=== PATIENT | male | born 1960 | race Hispanic/Latino ===

== ENCOUNTER 2017-01-31 08:29 | Inpatient (IN) | payer BC ==
[~2017-01-31 08:29] MED LIST: Calcium Chloride 1000 mg/10 ml Syringe IV ONE
[2017-01-31 08:46] VITALS: BMI 23.1
--- NOTE | 2017-01-31 08:49 | C.PDOC ---
Time Seen by Provider: 01/31/17 08:47 Chief Complaint (Nursing): Altered Mental Status Past Medical History Reviewed: Historical Data, Nursing Documentation, Vital Signs Vital Signs: Last Vital Signs Temp Pulse 26 L 01/31/17 08:30 Resp 26 H 01/31/17 08:30 BP 105/63 01/31/17 08:30 Pulse Ox - Medical History PMH: HIV, HTN Family History: States: No Known Family Hx - Social History Hx Alcohol Use: No Hx Substance Use: No
[2017-01-31] MEDS ORDERED: Sodium Chloride 0.9% 1,000 ML IV ONE ×2 (08:50→17:25)
--- NOTE | 2017-01-31 08:50 | C.PDOC ---
History Of Present Illness TOA 08:29 56-year-old male, PMHx includes HIV (DX 5 years ago, currently undetectable, high LFT's, Leukemia (s/p bone marrow transplant), Hypertension, and B/L hip replacement, is brought to the emergency department by ALS, accompanied by , with complaints of altered mental status. reports patient woke up at 06: 00 this morning, and had two episodes of non-bloody/non-bilious vomiting; patient was complaining that he felt generally unwell, and dizziness. She reports that he drove her to work around 08:[address] back, he called 911. ALS reports that they reached patient at 08:24, and he was found to be alert and oriented x2, patient had an EKG done, that showed a third degree block , resulting in him being brought to ED for evaluation. All other Hx is limited due to clinical condition. Patient was given 250cc's NS and 1mg Ativan, en route. PMD Dr. Luis Way, Time Seen by Provider: 01/31/17 08:47 Chief Complaint (Nursing): Altered Mental Status History Per: Patient History/Exam Limitations: no limitations Current Symptoms Are (Timing): Still Present Past Medical History Reviewed: Historical Data, Nursing Documentation, Vital Signs Vital Signs: Last Vital Signs Temp Pulse 70 01/31/17 10:34 Resp 14 01/31/17 10:34 BP 80/53 L 01/31/17 10:34 Pulse Ox 100 01/31/17 10:34 - Medical History PMH: HIV, HTN Family History: States: No Known Family Hx - Social History Hx Alcohol Use: No Hx Substance Use: No Review Of Systems Review Of Systems: ROS cannot be obtained secondary to pt's inabilty to answer questions. Gastrointestinal: Positive for: Vomiting Neurological: Positive for: Dizziness Physical Exam - Physical Exam Appears: Non-toxic, No Acute Distress, Other (EXTERNAL PACING IN PROGRESS; APPROPRIATE RESPONSE TO VERBAL STIMULATION) Head: Atraumatic, Normacephalic Eye(s): bilateral: PERRL Nose: Normal Oral Mucosa: Moist Lips: Normal Appearing Chest: Symmetrical Cardiovascular: Rhythm Regular, No Murmur Respiratory: Normal Breath Sounds, No Accessory Muscle Use Gastrointestinal/Abdominal: Soft, No Tenderness Pulses: Left Femoral: Normal (PALPABLE FEMORAL PULSE W PACING), Right Femoral: Normal (PALPABLE FEMORAL PULSE W PACING) ED Course And Treatment - Laboratory Results Result Diagrams: 01/31/17 12:04 01/31/17 12:04 Progress - Re-Evaluation Re-evaluation Note: 01/31/17 08:42 d/w dr love, unavailable for EMERGENT ER EVAL D/W DR WOMACK WILL EVAL PT IN ER PT MAINTAINING EXT PACER, CO PAIN FROM PACING PADS. AO2 01/31/17 09:00 DR WOMACK @ BEDSIDE, PT REQUIRES EMERGENT TRANSVENOUS PM. +HYPOTENSION S/P ATIVAN , PAIN RX. 01/31/17 09:31 SP INTUBATION BY ANESTHESIA WO DIFF. PERSIST HYPOTENSION , DOPAMINE STARTED. VENOUS PACEMAKER TO BE PLACED BY DR LOVE IN ICU. - Data Reviewed Data Reviewed: Lab, Diagnostic imaging, EKG, Old records - Critical Care Citical Care: Excluding Proc Time Critical Care Time: 120 minutes - Continuity of Care Discussed patient case with:: Patient, Family-HIPPA compliant Discussed pt. case with research consultant/specialty: Pulmonary/Crit. Care Disposition Counseled Patient/Family Regarding: Studies Performed, Diagnosis - Disposition Disposition: HOSPITALIZED Disposition Time: 09:30 Condition: CRITICAL - POA Present On Arrival: None - Clinical Impression Clinical Impression: Third degree AV block, Syncope, Hypotension - Scribe Statement The provider has reviewed the documentation as recorded by the Scribe (Kim Evans) All medical record entries made by the Scribe were at my direction and personally dictated by me. I have reviewed the chart and agree that the record accurately reflects my personal performance of the history, physical exam, medical decision making, and the department course for this patient. I have also personally directed, reviewed, and agree with the discharge instructions and disposition. Decision To Admit - Pt Status Changed To: Hospital Disposition Of: Inpatient - Admit Certification Admit to Inpatient:: After my assessment, the patient will require hospitalization for at least two midnights. This is because of the severity of symptoms shown, intensity of services needed, and/or the medical risk in this patient being treated as an outpatient. - InPatient: Physician Admission Certification: I certify that this patient requires 2 or more midnights of care for the following reason:: SEE NOTE - . Bed Request Type: ICU Admitting Physician: Thierno Randall Jr. Patient Diagnosis: Third degree AV block, Syncope, Hypotension
[2017-01-31 09:12] LABS: BASO % 0.2 % (0.0-2.0); HEMOGLOBIN 12.4 g/dL (12.0-18.0); LYMPH # 1.5 K/uL (1.0-4.3); LYMPH % 12.2 % (20.0-40.0); MEAN CELL VOLUME 94.5 fL (80.0-94.0); MEAN CORPUSCULAR HEMOGLOBIN 30.6 pg (27.0-31.0); MEAN CORPUSCULAR HGB CONC 32.4 g/dL (33.0-37.0); MEAN PLATELET VOLUME 7.5 fL (7.2-11.7); MONO # 0.2 K/uL (0.0-0.8); MONO % 1.9 % (0.0-10.0); NEUT # 10.4 K/uL (1.8-7.0); NEUT % 85.7 % (50.0-75.0); RBC 4.05 Mil/uL (4.40-5.90); RED CELL DISTRIBUTION WIDTH 14.4 % (11.5-14.5); WHITE BLOOD COUNT 12.1 K/uL (4.8-10.8)
[2017-01-31] MEDS ORDERED: Lidocaine 2% Jelly (Uro-Jet) ONE (09:18)
--- NOTE | 2017-01-31 09:18 | CP.PCM.CON ---
History of Present Illness - History of Present Illness History of Present Illness: Cardiology Consult Note Reason for consult: complete heart block Please note: history from at beside as patient is unstable and to be intubated 56 year old male PMHx of CML diagnosed 1990 [resolved], HTN, HIV+ BIBA after having two syncopal episodes at home. states he woke up at 6 this AM feeling nauseous and had an episode of nonbloody nonbilious emesis that was mostly clear liquid. Patient then ate some cereal and coffee but had another episode of nonbloody but questionable bilious emesis with food contents. reported that the patient drove her to work at 6:55am this morning but upon returning home he had two episodes of syncope after which he called EMS. Patient has had no recent travel, sick contacts, recent illnesses. He has an extensive history at [facility] as per . 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 ALL: NKDA ROS: unobtainable Patient was intubated in the ER. R IJ central line was placed in ICU and a temporary pacemaker was also placed in ICU. CXR taken to confirm placement of all lines. Patient was started on dopamine gtt, levophed gtt, and vasopressin gtt. Patient is sedated on propofol gtt. Review of Systems - Review of Systems Systems not reviewed;Unavailable: Intubated Past Patient History - Past Social History Smoking Status: Never Smoked - CARDIAC Hx Hypertension: Yes - ENDOCRINE/METABOLIC Hx Endocrine Disorders: Yes Hx Diabetes Mellitus Type 2: Yes - HEMATOLOGICAL/ONCOLOGICAL Hx Human Immunodeficiency Virus (HIV): Yes - MUSCULOSKELETAL/RHEUMATOLOGICAL Hx Musculoskeletal Disorders: Yes Hx Arthritis: Yes (gouty) - PSYCHIATRIC Hx Substance Use: No - SURGICAL HISTORY Hx Surgeries: Yes Hx Orthopedic Surgery: Yes (bilateral hip replacement) Meds Allergies/Adverse Reactions: Allergies Allergy/AdvReac Type Severity Reaction Status Date / Time No Known Allergies Allergy Verified 01/31/17 08:35 - Medications Medications: Current Medications Sodium Chloride (Sodium Chloride 0.9%) 1,000 mls @ 250 mls/hr IV .Q4H ONE Stop: 01/31/17 12:49 Physical Exam - Head Exam Head Exam: ATRAUMATIC, NORMAL INSPECTION, NORMOCEPHALIC - Eye Exam Eye Exam: Normal appearance. absent: Conjunctival injection, Scleral icterus - ENT Exam ENT Exam: Mucous Membranes Dry Additional comments: ET tube in place - Respiratory Exam Respiratory Exam: absent: Accessory Muscle Use, Respiratory Distress Additional comments: vent sounds heard throughout - Cardiovascular Exam Cardiovascular Exam: REGULAR RHYTHM, RRR, +S1, +S2 Additional comments: paced by temporary pacemaker - GI/Abdominal Exam GI & Abdominal Exam: Normal Bowel Sounds, Soft - Extremities Exam Extremities exam: Negative for: pedal edema - Neurological Exam Additional comments: sedated on propofol gtt - Skin Skin Exam: Dry, Intact Results - Vital Signs Recent Vital Signs: Last Vital Signs Temp Pulse 26 L 01/31/17 08:30 Resp 26 H 01/31/17 08:30 BP 105/63 01/31/17 08:30 Pulse Ox - Labs Result Diagrams: 01/31/17 12:04 01/31/17 12:04 Labs: Laboratory Results - last 24 hr 01/31/17 01/31/17 08:36 09:07 WBC 12.1 H RBC 4.05 L Hgb 12.4 Hct 38.2 MCV 94.5 H MCH 30.6 MCHC 32.4 L RDW 14.4 Plt Count 300 MPV 7.5 Neut % (Auto) 85.7 H Lymph % (Auto) 12.2 L [place] % (Auto) 1.9 Eos % (Auto) 0.0 Baso % (Auto) 0.2 Neut # 10.4 H Lymph # 1.5 [place] # 0.2 Eos # 0.0 Baso # 0.0 POC Glucose (mg/dL) 215 H Assessment & Plan - Assessment and Plan (Free Text) Assessment: 56 year old male PMHx of CML diagnosed 1990 [resolved], HTN, HIV+ BIBA after having two syncopal episodes at home Admitted for third degree heart block and positive troponins Plan: Third degree heart block -Troponin x 1 : 0.333 -Venous pacer inserted this AM -Dopamine gtt, Levophed gtt, Vasopressin gtt initiated- titrate to MAP of 70 -f/u Echo -f/u JACE and EKG x 2 -will insert permanent pacemaker when patient is stabilized Cardiology will continue to follow patient in the unit
[2017-01-31 09:20] LABS: INR 1.1; PROTHROMBIN TIME 12.3 SECONDS (9.7-12.2)
[2017-01-31] MEDS ORDERED: Ketamine 50 mg/ml Inj (10 ml) ONE (09:23)
[2017-01-31] MEDS ORDERED: DOPamine 400mg/250ml D5W 400 MG/250 ML BAG IV ONE (09:25)
[2017-01-31] MEDS ORDERED: D5W ONE (09:25)
[2017-01-31] MEDS ORDERED: DOBUTAMINE 500 MG/250 ML ONE (09:25)
[2017-01-31 09:28] LABS: ALBUMIN 2.1 g/dL (3.5-5.0)
[2017-01-31 09:34] LABS: CALCIUM 5.1 mg/dl (8.6-10.4)
[2017-01-31] MEDS ORDERED: Propofol 10 mg/ml 1,000 MG/100 ML VIAL ONE (09:40)
[2017-01-31] MEDS ORDERED: Calcium Chloride 1000 mg/10 ml Syringe IV ONE ×3 (09:40→15:10)
--- NOTE | 2017-01-31 09:44 | PCM.ANES ---
Anesthesia Emergent Intubation - Diagnosis Working Diagnosis:: Altered Mental Status - Intubation Attempts Previous Number of Intubation Attempts:: 0 - Pre-Intubation Vital Signs Blood Pressure: 73/34 Heart Rate: 60 Respiratory Rate: 20 O2 Sat: 100 FIO2: 100 Oxygen Delivery Method: Face Mask Level Of Consciousness: Sedated Intubation Meds Given: Etomidate - Method of Intubation Intubation Method: Oral ETT ETT Size: 7.5 Easy: Yes Atramatic: Yes - Intubation Devices [place] Scope Used: Yes - Placement Confirmation Breath Sounds Present & Equal Bilaterally: Yes Gurgling Sounds Not Audible at Epigastrum: Yes Positive EtCO2: Yes Recommendations: Ventilator, Chest X Ray - Post-Intubation Vital Signs Blood Pressure: 70/35 Heart Rate: 60
[2017-01-31 09:46] LABS: TROPONIN I 0.333 ng/mL (0.00-0.120)
[2017-01-31] MEDS: DOPamine 400mg/250ml D5W 400 MG/250 ML BAG IV PRN ×4 (10:32→23:20)
[2017-01-31] MEDS ORDERED: Calcium Gluconate 4.65 mEq/10 ml Inj IVP ONE (11:03)
[2017-01-31] MEDS ORDERED: Propofol 10 mg/ml 1,000 MG/100 ML VIAL IV PRN (11:11)
[2017-01-31] MEDS ORDERED: Sodium Bicarbonate (8.4%) 50 Meq Syringe IVP ONE ×3 (11:14→17:24)
[2017-01-31] MEDS: Sodium Bicarbonate (8.4%) 50 Meq Syringe IVP ONE ×2 (11:17→13:16)
--- NOTE | 2017-01-31 11:19 | CP.PCM.CON ---
<Fco Prajapati Amadeo - Last Filed: 01/31/17 13:53> History of Present Illness - History of Present Illness History of Present Illness: ICU Consult note: Dr Jones Please note: history from at bedside and medical records Pt is a 56M w/ PMHx of CML diagnosed 1990 [currently resolved], HTN, HIV+ with undetectable viral load, s/p bone marrow transplant. Pt brought in by EMS. states he woke up at 6AM today feeling nauseous and had an episode of emesis non-bloody non-billous. He was unable to tolerate any PO intake. states she last saw him at 7AM when he dropped her off at work before calling EMS at home after having a syncopal episode. No further history obtainable from patient. In the emergency room pt was found to have third degree heart block. Being cutaneously paced. Anesthesia was called (given history of tracheostomy) and pt was intubated under direct vision using [place] Scope. Pt was given 10mcg of dopamine in ED and blood pressure stabilized so pt was brought to ICU Upon arrival to ICU pt was placed on vent. A right internal jugular central line was placed under US guidance. This was followed by venous pacer placement. Initial CXR showed pacer needed to be withdrawn and it has been repositioned and confirmed by CXR. Pt currently on dopamine and norepineprhine. PMHx: chronic myeloid leukemia (CML), HIV (well managed), bilateral kidney cysts PSH: L hip replacement in (two operations), R hip replacement in , bone marrow transplant, tracheostomy SocHx: no tobacco or alcohol use ALL: NKDA ROS: unobtainable Review of Systems - Review of Systems Systems not reviewed;Unavailable: Altered Mental Status, Intubated Past Patient History - Past Social History Smoking Status: Never Smoked - CARDIAC Hx Hypertension: Yes - ENDOCRINE/METABOLIC Hx Endocrine Disorders: Yes Hx Diabetes Mellitus Type 2: Yes - HEMATOLOGICAL/ONCOLOGICAL Hx Human Immunodeficiency Virus (HIV): Yes - MUSCULOSKELETAL/RHEUMATOLOGICAL Hx Musculoskeletal Disorders: Yes Hx Arthritis: Yes (gouty) - PSYCHIATRIC Hx Substance Use: No - SURGICAL HISTORY Hx Surgeries: Yes Hx Orthopedic Surgery: Yes (bilateral hip replacement) Meds Allergies/Adverse Reactions: Allergies Allergy/AdvReac Type Severity Reaction Status Date / Time No Known Allergies Allergy Verified 01/31/17 08:35 - Medications Medications: Current Medications Calcium Gluconate (Calcium Gluconate) 4.65 meq IVP ONCE ONE Stop: 01/31/17 11:04 Sodium Chloride (Sodium Chloride 0.9%) 1,000 mls @ 250 mls/hr IV .Q4H ONE Stop: 01/31/17 12:49 Last Admin: 01/31/17 09:00 Dose: 250 mls/hr Dopamine HCl/Dextrose (Dopamine 400mg/250ml D5w) 400 mg in 250 mls @ 6.124 mls/ hr IV .Q24H PRN; Protocol; 2 MCG/KG/MIN PRN Reason: TITRATE PER MD ORDER Last Admin: 01/31/17 10:34 Dose: 10 mcg/kg/min, 30.618 mls/hr Norepinephrine Bitartrate 4 mg (/ Dextrose) 254 mls @ 15.24 mls/hr IV .[id number] PRN; Protocol; 4 MCG/MIN PRN Reason: TITRATE PER MD ORDER Propofol (Diprivan) 1,000 mg in 100 mls @ 2.449 mls/hr IV .Q24H PRN; Protocol; 5 MCG/KG/MIN PRN Reason: TITRATE PER MD ORDER Sodium Bicarbonate (Sodium Bicarbonate (8.4%) 50 Meq Syringe) 50 meq IVP ONCE ONE Stop: 01/31/17 11:15 Sodium Bicarbonate (Sodium Bicarbonate (8.4%) 50 Meq Syringe) 50 meq IVP ONCE ONE Stop: 01/31/17 11:16 Physical Exam - Constitutional Appears: In Acute Distress - Head Exam Head Exam: ATRAUMATIC - Eye Exam Eye Exam: PERRL - ENT Exam ENT Exam: Mucous Membranes Dry - Respiratory Exam Respiratory Exam: Clear to Auscultation Bilateral. absent: Accessory Muscle Use , Decreased Breath Sounds, Rhonchi, Wheezes, Respiratory Distress - Cardiovascular Exam Cardiovascular Exam: Bradycardia (paced at time of examination). absent: Diastolic murmur, Irregular Rhythm, Systolic Murmur - GI/Abdominal Exam GI & Abdominal Exam: Soft. absent: Distended, Firm, Guarding, Rigid - Extremities Exam Extremities exam: Positive for: pedal pulses present. Negative for: pedal edema - Skin Skin Exam: Normal Color, Warm Results - Vital Signs Recent Vital Signs: Last Vital Signs Temp Pulse 70 01/31/17 10:34 Resp 14 01/31/17 10:34 BP 80/53 L 01/31/17 10:34 Pulse Ox 100 01/31/17 10:34 - Labs Result Diagrams: 01/31/17 12:04 01/31/17 12:04 Assessment & Plan - Assessment and Plan (Free Text) Assessment: 56M found to have third degree heart block, + troponin Plan: Neuro: GCS 15 at time of initial exam: now intubated and sedated titrate diprivan to RASS of -2-3 CT Head due to syncopal episode Pulm: CXR shows no infiltrate or effusion CT Chest CV: Venous pacer inserted Dopamine/Norepinephrine drips started: titrate to MAP of 70 s/p 2g Ca Cl, 2 amp Bicarb Cardiology Consulted: Dr Solorzano ECHO ordered JACE Panel Q6H w/ EKG Arterial line placement Heme: HgB stable Renal: Elevated BUN/Cr likely 2/2 sepsis and dehydration will hydrate accordingly and monitor GI: CT abdomen to eval for source of sepsis NGT inserted Will consider tube feeds after CT scan : Perez insertion will monitor renal fx, likely declined 2/2 septic shock ID: blood cultures and urine culture drawn Vanc 1g Q24 Zosyn 3.375mg Q6H DVT proph - SCDs, HSQ Q12H GI proph - Pepcid Code status - Full code Case discussed with Dr. Karen Prajapati, PGY3 - Date & Time Date: 01/31/17 Time: 13:54 Procedures - Central Line Placement Jugular Internal Right CVP Consent: written consent () CVP Time Out Performed: Yes Pt. Placed on Monitor Pule Ox: Yes MD Prep: gloves Central Line Prep: Chlorhexidine Local Anesthesia Used: Lidocaine 1% Amount of Anesthesia Used (mls): 5 Ultrasound Used for Placement: Yes Central Line Lumen Inserted: single (venous pacer insertion) Post Procedure: Good Blood Return Post Procedure X-Ray: No Pneumothorax Seen Patient Tolerated Procedure: No Complications Complications: None <Kye Jones - Last Filed: 01/31/17 17:28> Meds - Medications Medications: Current Medications Famotidine (Pepcid) 20 mg IVP DAILY [facility] Heparin Sodium (Porcine) (Heparin) 5,000 units SC Q12 [facility] Hydrocortisone Sodium Succinate (Solu-Cortef) 100 mg IV Q8H [facility] Dopamine HCl/Dextrose (Dopamine 400mg/250ml D5w) 400 mg in 250 mls @ 6.124 mls/ hr IV .Q24H PRN; Protocol; 2 MCG/KG/MIN PRN Reason: TITRATE PER MD ORDER Last Admin: 01/31/17 10:34 Dose: 10 mcg/kg/min, 30.618 mls/hr Norepinephrine Bitartrate 4 mg (/ Dextrose) 254 mls @ 15.24 mls/hr IV .[id number] PRN; Protocol; 4 MCG/MIN PRN Reason: TITRATE PER MD ORDER Propofol (Diprivan) 1,000 mg in 100 mls @ 2.449 mls/hr IV .Q24H PRN; Protocol; 5 MCG/KG/MIN PRN Reason: TITRATE PER MD ORDER Piperacillin Sod/Tazobactam Sod (Zosyn 3.375 Gm Iv Premix) 3.375 gm in 50 mls @ 100 mls/hr IVPB Q6 [facility] Last Admin: 01/31/17 13:24 Dose: 100 mls/hr Vancomycin/Sodium Chloride (Vancocin) 1 gm in 200 mls @ 166.7 mls/hr IVPB DAILY [facility] Stop: 02/05/17 12:01 Last Admin: 01/31/17 13:17 Dose: 166.7 mls/hr Vasopressin 40 units/ Sodium (Chloride) 40 mls @ 0.6 mls/hr IV .Q24H [facility]; 0.01 UNITS/MIN PRN Reason: Protocol Last Titration: 01/31/17 15:07 Dose: 0.04 units/min, 2.4 mls/hr Results - Vital Signs Recent Vital Signs: Last Vital Signs Temp Pulse 100 H 01/31/17 15:30 Resp 33 H 01/31/17 15:30 BP 86/53 L 01/31/17 15:28 Pulse Ox 99 01/31/17 15:30 - Labs Result Diagrams: 01/31/17 12:04 01/31/17 12:04 Labs: Laboratory Results - last 24 hr 01/31/17 01/31/17 01/31/17 11:18 12:04 12:04 WBC 22.5 H D RBC 4.08 L Hgb 12.4 Hct 38.6 MCV 94.5 H MCH 30.3 MCHC 32.1 L RDW 14.2 Plt Count 298 MPV 8.0 Differential Comment Puncture Site Lra pCO2 28 L pO2 314 H HCO3 13.8 L ABG pH 7.23 L ABG Total CO2 12.6 L ABG O2 Saturation 99.6 H ABG Base Excess -14.3 L Rodrigo Test Pos ABG Potassium 4.2 A-a O2 Difference 364.0 Respiratory Index 1.2 Sodium 139.0 142 Chloride 113.0 H 112 H Glucose 107 Lactate 4.5 H* Mechanical Rate 14 FiO2 100.0 Tidal Volume 500 PEEP 5 Crit Value Called To Dr jones Crit Value Called By Chris vance hand fur cleaner Crit Value Read Back Y Blood Gas Notified Time 1124 Potassium 4.7 Carbon Dioxide 15 L Anion Gap 20 BUN 55 H Creatinine 5.1 H Est GFR ( Amer) 14 Est GFR (Non-Af Amer) 12 Random Glucose 112 H Calcium 7.0 L Phosphorus 2.9 Magnesium 2.0 Total Bilirubin 0.8 AST 39 ALT 26 Alkaline Phosphatase 35 L Total Protein 5.5 L Albumin 3.0 L D Globulin 2.6 Albumin/Globulin Ratio 1.2 Arterial Blood Potassium 4.2 Attending/Attestation - Attestation I have personally seen and examined this patient.: Yes I have fully participated in the care of the patient.: Yes I have reviewed all pertinent clinical information: Yes Notes (Text): 01/31/17 16:50 Today: , January 24, 2017 The Patient was seen and examined at the bedside, Medical records reviewed, all clinical/lab/hemodynamic/radiographic data were reviewed and management issues were discussed and formulated, Events reviewed Pain issues, skin care, head of the bed elevation, glycemic control were addressed. Agree with above treatment plans as transcribed in Dr. Prajapati Note 56 Y/O M with PMHx of HTN, CKD, high LFT's, chronic myeloid leukemia diagnosed 1990 (s/p bone marrow transplant), B/L hip replacement and HIV (Diagnosed 5 years ago when he was admitted to [facility] for bilateral pneumonia, ( VL currently undetectable) Who was brought to the emergency department by ALS accompanied by , with complaints of Syncopal episode this morning, N/Vomiting and now altered mental status. In the emergency room he was found to have third degree heart block, was intubated for hemodynamic instability, Started [id number] of dopamine in ED then transferred to ICU where introducer and trans venous pace maker were placed under complete aseptic precaution. Right femoral Arterial line placed for real-time BP monitoring ID/Renal/Cardiology and EP consulted and recommendations appreciated. Patient critically ill in the ICU, Hypotensive on multiple pressers, IV hydration, volume resuscitations, IV antibiotics with IV Vanco/Zosyn initiated for likely septic shock, hydrocortisone also initiated for possible adrenal insuffiency GI/DVT PPV Frequent labs/ABG Stat ECHO done Due to the critical condition of the patient, we were unable to get CT scan or send for any other imaging.
[2017-01-31 11:24] LABS: ABG ALLEN TEST POS; ARTERIAL BLOOD GAS HCO3 13.8 mmol/L (21-28); ARTERIAL BLOOD GAS O2 SAT 99.6 % (95-98); ARTERIAL BLOOD GAS PCO2 28 mm/Hg (35-45); ARTERIAL BLOOD GAS PH 7.23 (7.35-7.45); ARTERIAL BLOOD GAS PO2 314 mm/Hg (80-100); ARTERIAL BLOOD GAS TCO2 12.6 mmol/L (22-28)
[2017-01-31] MEDS ORDERED: Vancomycin 1 gm/NS 200 ml 1 GM/200 ML BAG IVPB SCH (12:00)
[2017-01-31 12:11] LABS: HEMOGLOBIN 12.4 g/dL (12.0-18.0); MEAN CELL VOLUME 94.5 fL (80.0-94.0); MEAN CORPUSCULAR HEMOGLOBIN 30.3 pg (27.0-31.0); MEAN CORPUSCULAR HGB CONC 32.1 g/dL (33.0-37.0); RBC 4.08 Mil/uL (4.40-5.90); RED CELL DISTRIBUTION WIDTH 14.2 % (11.5-14.5)
[2017-01-31 12:12] LABS: WHITE BLOOD COUNT 22.5 K/uL (4.8-10.8)
--- NOTE | 2017-01-31 12:18 | RAD ---
PROCEDURE: CHEST RADIOGRAPH, 1 VIEW HISTORY: chest pain COMPARISON: None available. FINDINGS: LUNGS: Endotracheal tube extending into the mid thoracic trachea. Mild venous congestion. Right hilar prominence. PLEURA: No pneumothorax or pleural fluid seen. CARDIOVASCULAR: Mild cardiomegaly. OSSEOUS STRUCTURES: No significant abnormalities. VISUALIZED UPPER ABDOMEN: Normal. OTHER FINDINGS: None. IMPRESSION: Endotracheal tube extending into the mid thoracic trachea. Mild venous congestion. Right hilar prominence.
[2017-01-31 12:24] LABS: ALB/GLOB RATIO 1.2 (1.0-2.1)
--- NOTE | 2017-01-31 12:53 | RAD ---
Chest x-ray single frontal view History: Status post venous pacer placement. Comparison: 01/31/2017 Findings: Endotracheal tube extending into the mid thoracic trachea. Multiple overlying external tubing and wiring. Additional tubing and or lead projects over the left ventricle. Electronic device projects over the midline heart. Moderate venous congestion with right hilar consolidation. Diffuse increased interstitial lung markings. Biapical pleural thickening. Cardiomegaly. Surgical clips in the right upper abdomen. Impression: Endotracheal tube extending into the mid thoracic trachea. Multiple overlying external tubing and wiring. Additional tubing and or lead projects over the left ventricle. Electronic device projects over the midline heart. Moderate venous congestion with right hilar consolidation. Diffuse increased interstitial lung markings. Biapical pleural thickening. Cardiomegaly. Surgical clips in the right upper abdomen.
[2017-01-31] MEDS: Piperacill/Tazo 3.375gm in Dex 3.375 GM/50 ML BAG IVPB SCH ×3 (13:24→23:00)
--- NOTE | 2017-01-31 16:47 | PCM.PROC ---
Procedures Attestation:: I certify that I have explained the specified Operation(s) or Procedure(s), risks, benefits and reasonable alternatives to the Patient and/or other person responsible. The opportunity was given to ask questions and all questions answered - Arterial Line Right Femoral Aseptic technique was employed throughout the procedure: Hand Hygiene done prior to procedure, Full sterile barriers (mask, hair cover, sterile gown, sterile gloves), Full body sterile drape, Chloraprep Antiseptic: 2 minute prep for Femoral Time Out Performed: Yes Pt. placed on Pulse Ox Monitor: Yes Central Line Prep: Chlorhexidine-Alcohol Combination Local Anesthesia Used: Lidocaine 1% Amount of Anesthesia Used (mls): 5 Ultrasound Used for Placement: No Gauge (Size): 20 gauge Technique Used: Guide Wire Technique Secured by: Suture Post procedure dressing: Gauze, Clear vapor permeable, Chlorhexidine disc ( Biopatch) Patient Tolerated Procedure: no complications Immediate Complications: none
[2017-01-31] MEDS ORDERED: Midazolam 50 mg/10 ml 100 MG in Dextrose 5% In Water 80 ML IV SCH (17:15)
--- NOTE | 2017-01-31 17:16 | CARD ---
APPROVED REPORT EXAM: Two-dimensional and M-mode echocardiogram with Doppler and color Doppler. Other Information Quality : FairRhythm : NSR INDICATION Syncope THIRD DEGREE HEART BLOCK,HYPOTENSION PT ON VENT M-Mode DIMENSIONS RVDd2.43 (2.1-3.2cm)Left Atrium (MM)2.60 (2.5-4.0cm) IVSd1.39 (0.7-1.1cm)Aortic Root3.54 (2.2-3.7cm) LVDd4.20 (4.0-5.6cm)Aortic Cusp Exc.2.39 (1.5-2.0cm) PWd1.35 (0.7-1.1cm)FS (%) 41 % LVDs2.46 (2.0-3.8cm)LVEF (%)73 (>50%) Mitral Valve MV E Rytyecgr84.4cm/sMV A Vupwywwr73.1cm/sE/A ratio1.1 TDI E/Lateral E'0.0E/Medial E'0.0 LEFT VENTRICLE The left ventricle is normal size. There is mild concentric left ventricular hypertrophy. Left ventricle systolic function is normal. The Ejection Fraction is >70%. There is normal LV segmental wall motion. The left ventricular diastolic function is normal. RIGHT VENTRICLE The right ventricle is normal size. There is normal right ventricular wall thickness. The right ventricular systolic function is normal. ATRIA The left atrium size is normal. The right atrium size is normal. The interatrial septum is intact with no evidence for an atrial septal defect. AORTIC VALVE The aortic valve is normal in structure. No aortic regurgitation is present. There is no aortic valvular stenosis. MITRAL VALVE The mitral valve is normal in structure. There is no evidence of mitral valve prolapse. There is no mitral valve stenosis. There is no mitral valve regurgitation noted. TRICUSPID VALVE The tricuspid valve is normal in structure. There is no tricuspid valve regurgitation noted. PULMONIC VALVE The pulmonic valve is not well visualized. There is no pulmonic valvular regurgitation. GREAT VESSELS The aortic root is normal in size. PERICARDIAL EFFUSION There is no significant pericardial effusion. <Conclusion> Left ventricle systolic function is normal. The Ejection Fraction is >70%. Hypertensive heart disease. No aortic regurgitation is present. There is no mitral valve regurgitation noted. There is no tricuspid valve regurgitation noted. There is no pulmonic valvular regurgitation.
[2017-01-31 17:19] LABS: ARTERIAL BLOOD GAS HCO3 13.5 mmol/L (21-28); ARTERIAL BLOOD GAS O2 SAT 99.7 % (95-98); ARTERIAL BLOOD GAS PCO2 27 mm/Hg (35-45); ARTERIAL BLOOD GAS PH 7.23 (7.35-7.45); ARTERIAL BLOOD GAS PO2 172 mm/Hg (80-100); ARTERIAL BLOOD GAS TCO2 12.1 mmol/L (22-28)
[2017-01-31 17:33] LABS: ALBUMIN 2.4 g/dL (3.5-5.0)
[2017-01-31 17:36] LABS: ALB/GLOB RATIO 0.8 (1.0-2.1)
[2017-01-31 17:37] LABS: CALCIUM 6.6 mg/dl (8.6-10.4); MAGNESIUM 1.7 mg/dL (1.6-2.3)
[2017-01-31 17:39] LABS: MEAN PLATELET VOLUME 8.1 fL (7.2-11.7); RED CELL DISTRIBUTION WIDTH 14.2 % (11.5-14.5)
[2017-01-31 17:44] LABS: HEMOGLOBIN 16.8 g/dL (12.0-18.0); MEAN CELL VOLUME 93.7 fL (80.0-94.0); MEAN CORPUSCULAR HEMOGLOBIN 30.6 pg (27.0-31.0); MEAN CORPUSCULAR HGB CONC 32.7 g/dL (33.0-37.0); PLATELET COUNT 360 K/uL (130-400); RBC 5.49 Mil/uL (4.40-5.90); WHITE BLOOD COUNT 35.9 K/uL (4.8-10.8)
[2017-01-31 17:45] LABS: BARBITURATES, UR NEGATIVE (NEGATIVE)
[2017-01-31 17:46] LABS: BENZODIAZEPINES, UR NEGATIVE (NEGATIVE)
[2017-01-31 17:48] LABS: CK-MB 80.8 ng/mL (0.0-3.38)
[2017-01-31 17:48] LABS: OPIATES, UR NEGATIVE (NEGATIVE)
[2017-01-31 17:49] LABS: PHENCYCLIDINE, UR NEGATIVE (NEGATIVE)
--- NOTE | 2017-01-31 18:03 | CP.PCM.CON ---
History of Present Illness - History of Present Illness History of Present Illness: INFECTIOUS DISEASE CONSULT: REASONS FOR CONSULT : MULTIORGAN FAILURE/RESPIRATORY FAILURE CARDIOGENIC SHOCK/THIRD DEGREE HEART BLOCK S/P TEMPORARY PACEMAKER.01/31/17 HIV+VE CML. RADHA -MULTIFACTORIAL- SEVERE METABOLIC ACIDOSIS ALL EMR REVIEWED .. LABS REVIEWED .. CASE D/W STAFF/RESIDENT. HISTORY OBTAINED FROM THE CHART/AND STAFF. HPI 56 year old male PMHx of CML diagnosed 1990 [resolved], HTN, HIV+ BIBA after having two syncopal episodes at home. states he woke up at 6 this AM feeling nauseous and had an episode of nonbloody nonbilious emesis that was mostly clear liquid. Patient then ate some cereal and coffee but had another episode of nonbloody but questionable bilious emesis with food contents. reported that the patient drove her to work at 6:55am this morning but upon returning home he had two episodes of syncope after which he called EMS. Patient has had no recent travel, sick contacts, recent illnesses. He has an extensive history at [facility] as per . 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 R IJ central line was placed in ICU and a temporary pacemaker was also placed in ICU. CXR taken to confirm placement of all lines. Patient was started on dopamine gtt, levophed gtt, and vasopressin gtt. S/P RT. FEMORAL CATHETER PLACEMENT FOR HEMODIALYSIS PLACED BY DR MACHUCA Review of Systems - Review of Systems Systems not reviewed;Unavailable: Intubated Past Patient History - Past Medical History & Family History Past Medical History?: Yes - Past Social History Smoking Status: Never Smoked - CARDIAC Hx Hypertension: Yes - ENDOCRINE/METABOLIC Hx Endocrine Disorders: Yes Hx Diabetes Mellitus Type 2: Yes - HEMATOLOGICAL/ONCOLOGICAL Hx Human Immunodeficiency Virus (HIV): Yes - MUSCULOSKELETAL/RHEUMATOLOGICAL Hx Musculoskeletal Disorders: Yes Hx Arthritis: Yes (gouty) - GENITOURINARY/GYNECOLOGICAL Hx Prostate Problems: Yes - PSYCHIATRIC Hx Substance Use: No - SURGICAL HISTORY Hx Surgeries: Yes Hx Orthopedic Surgery: Yes (bilateral hip replacement) - ANESTHESIA Hx Anesthesia: Yes Hx Anesthesia Reactions: No Meds Allergies/Adverse Reactions: Allergies Allergy/AdvReac Type Severity Reaction Status Date / Time No Known Allergies Allergy Verified 01/31/17 08:35 - Medications Medications: Current Medications Atovaquone (Mepron) 750 mg PO BID [facility] Famotidine (Pepcid) 20 mg IVP DAILY [facility] Heparin Sodium (Porcine) (Heparin) 5,000 units SC Q12 [facility] Hydrocortisone Sodium Succinate (Solu-Cortef) 100 mg IV Q8H [facility] Last Admin: 01/31/17 17:03 Dose: 100 mg Dopamine HCl/Dextrose (Dopamine 400mg/250ml D5w) 400 mg in 250 mls @ 6.124 mls/ hr IV .Q24H PRN; Protocol; 2 MCG/KG/MIN PRN Reason: TITRATE PER MD ORDER Last Admin: 01/31/17 10:34 Dose: 10 mcg/kg/min, 30.618 mls/hr Norepinephrine Bitartrate 4 mg (/ Dextrose) 254 mls @ 15.24 mls/hr IV .[id number] PRN; Protocol; 4 MCG/MIN PRN Reason: TITRATE PER MD ORDER Propofol (Diprivan) 1,000 mg in 100 mls @ 2.449 mls/hr IV .Q24H PRN; Protocol; 5 MCG/KG/MIN PRN Reason: TITRATE PER MD ORDER Piperacillin Sod/Tazobactam Sod (Zosyn 3.375 Gm Iv Premix) 3.375 gm in 50 mls @ 100 mls/hr IVPB Q6 [facility] Last Admin: 01/31/17 13:24 Dose: 100 mls/hr Vancomycin/Sodium Chloride (Vancocin) 1 gm in 200 mls @ 166.7 mls/hr IVPB DAILY [facility] Stop: 02/05/17 12:01 Last Admin: 01/31/17 13:17 Dose: 166.7 mls/hr Vasopressin 40 units/ Sodium (Chloride) 40 mls @ 0.6 mls/hr IV .Q24H [facility]; 0.01 UNITS/MIN PRN Reason: Protocol Last Titration: 01/31/17 15:07 Dose: 0.04 units/min, 2.4 mls/hr Midazolam HCl 100 mg/ Dextrose 100 mls @ 1.63 mls/hr IV .Q24H [facility]; 0.02 MG/KG/ HR PRN Reason: Protocol Last Admin: 01/31/17 17:41 Dose: 0.02 mg/kg/hr, 1.63 mls/hr Sodium Chloride (Sodium Chloride 0.9%) 1,000 mls @ 1,000 mls/hr IV .Q1H [facility] Stop: 01/31/17 18:24 Last Admin: 01/31/17 17:25 Dose: 1,000 mls/hr Piperacillin Sod/Tazobactam Sod (Zosyn 2.25 Gm Iv Premix) 2.25 gm in 50 mls @ 100 mls/hr IVPB Q8 [facility] Physical Exam - Constitutional Appears: No Acute Distress - Head Exam Head Exam: NORMAL INSPECTION - Eye Exam Eye Exam: PERRL - ENT Exam ENT Exam: Mucous Membranes Dry, Normal Exam - Neck Exam Neck exam: Positive for: Normal Inspection. Negative for: Lymphadenopathy, Thyromegaly - Respiratory Exam Respiratory Exam: Rhonchi (RIGHT-SIDED.) - Cardiovascular Exam Cardiovascular Exam: Tachycardia, +S1, +S2 - GI/Abdominal Exam GI & Abdominal Exam: Normal Bowel Sounds, Soft. absent: Bruit, Organomegaly - Extremities Exam Extremities exam: Positive for: pedal pulses present. Negative for: calf tenderness, pedal edema - Neurological Exam Neurological exam: Altered - Skin Skin Exam: Normal Color, Warm Results - Vital Signs Recent Vital Signs: Last Vital Signs Temp Pulse 100 H 01/31/17 16:50 Resp 25 H 01/31/17 16:50 BP 77/45 L 01/31/17 16:37 Pulse Ox 98 01/31/17 16:50 - Labs Result Diagrams: 01/31/17 17:20 01/31/17 17:20 Labs: Laboratory Results - last 24 hr 01/31/17 01/31/17 01/31/17 11:18 12:04 12:04 WBC 22.5 H D RBC 4.08 L Hgb 12.4 Hct 38.6 MCV 94.5 H MCH 30.3 MCHC 32.1 L RDW 14.2 Plt Count 298 MPV 8.0 Differential Comment Puncture Site Lra pCO2 28 L pO2 314 H HCO3 13.8 L ABG pH 7.23 L ABG Total CO2 12.6 L ABG O2 Saturation 99.6 H ABG Base Excess -14.3 L Rodrigo Test Pos ABG Potassium 4.2 A-a O2 Difference 364.0 Respiratory Index 1.2 Sodium 139.0 Chloride 113.0 H Glucose 107 Lactate 4.5 H* Mechanical Rate 14 FiO2 100.0 Tidal Volume 500 PEEP 5 Crit Value Called To Dr hopper Crit Value Called By Chris vance bpm developer Crit Value Read Back Y Blood Gas Notified Time 1124 Potassium Carbon Dioxide Anion Gap BUN Creatinine Est GFR ( Amer) Est GFR (Non-Af Amer) Random Glucose Lactic Acid Calcium Phosphorus Magnesium Total Bilirubin AST ALT Alkaline Phosphatase Total Creatine Kinase CK-MB (Mass) Troponin I, Quant Total Protein Albumin Globulin Albumin/Globulin Ratio Procalcitonin 7.09 H Arterial Blood Potassium 4.2 Urine Opiates Screen Urine Methadone Screen Ur Barbiturates Screen Ur Phencyclidine Scrn Ur Amphetamines Screen U Benzodiazepines Scrn U Oth Cocaine Metabols U Cannabinoids Screen 01/31/17 01/31/17 01/31/17 12:04 16:46 17:15 WBC RBC Hgb Hct MCV MCH MCHC RDW Plt Count MPV Differential Comment Puncture Site A line pCO2 27 L pO2 172 H HCO3 13.5 L ABG pH 7.23 L ABG Total CO2 12.1 L ABG O2 Saturation 99.7 H ABG Base Excess -14.7 L Rodrigo Test Na ABG Potassium 4.2 A-a O2 Difference 222.0 Respiratory Index 1.3 Sodium 142 138.0 Chloride 112 H 108.0 H Glucose 182 H Lactate 3.8 H Mechanical Rate FiO2 60.0 Tidal Volume 500 PEEP 5 Crit Value Called To Crit Value Called By Crit Value Read Back Blood Gas Notified Time Potassium 4.7 Carbon Dioxide 15 L Anion Gap 20 BUN 55 H Creatinine 5.1 H Est GFR ( Amer) 14 Est GFR (Non-Af Amer) 12 Random Glucose 112 H Lactic Acid 3.4 H Calcium 7.0 L Phosphorus 2.9 Magnesium 2.0 Total Bilirubin 0.8 AST 39 ALT 26 Alkaline Phosphatase 35 L Total Creatine Kinase CK-MB (Mass) Troponin I, Quant Total Protein 5.5 L Albumin 3.0 L D Globulin 2.6 Albumin/Globulin Ratio 1.2 Procalcitonin Arterial Blood Potassium 4.2 Urine Opiates Screen Urine Methadone Screen Ur Barbiturates Screen Ur Phencyclidine Scrn Ur Amphetamines Screen U Benzodiazepines Scrn U Oth Cocaine Metabols U Cannabinoids Screen 01/31/17 01/31/17 01/31/17 17:20 17:20 17:23 WBC 35.9 H D RBC 5.49 Hgb 16.8 D Hct 51.5 H MCV 93.7 MCH 30.6 MCHC 32.7 L RDW 14.2 Plt Count 360 MPV 8.1 Differential Comment Puncture Site pCO2 pO2 HCO3 ABG pH ABG Total CO2 ABG O2 Saturation ABG Base Excess Rodrigo Test ABG Potassium A-a O2 Difference Respiratory Index Sodium 137 Chloride 113 H Glucose Lactate Mechanical Rate FiO2 Tidal Volume PEEP Crit Value Called To Crit Value Called By Crit Value Read Back Blood Gas Notified Time Potassium 4.3 Carbon Dioxide 13 L Anion Gap 15 BUN 55 H Creatinine 5.7 H Est GFR ( Amer) 12 Est GFR (Non-Af Amer) 10 Random Glucose 181 H Lactic Acid Calcium 6.6 L Phosphorus 2.5 Magnesium 1.7 Total Bilirubin 0.9 AST 72 H D ALT 29 Alkaline Phosphatase 34 L Total Creatine Kinase 584 H CK-MB (Mass) 80.8 H Troponin I, Quant 40.0000 H* Total Protein 5.2 L Albumin 2.4 L Globulin 2.8 Albumin/Globulin Ratio 0.8 L Procalcitonin Arterial Blood Potassium Urine Opiates Screen Negative Urine Methadone Screen Negative Ur Barbiturates Screen Negative Ur Phencyclidine Scrn Negative Ur Amphetamines Screen Negative U Benzodiazepines Scrn Negative U Oth Cocaine Metabols Negative U Cannabinoids Screen Negative - Imaging and Cardiology Chest x-ray Status: Report reviewed by me (01/31/17 chest x-ray moderate venous congestion, right hilar consolidation, increased lung markings with multiple wires and pacemaker present. See full report.) Assessment & Plan (1) Multiorgan failure Status: Acute (2) Hypotension Status: Acute (3) Third degree AV block Status: Acute (4) Syncope Status: Acute (5) HIV positive Status: Acute (6) Acute renal failure (ARF) Status: Acute (7) H/O: CML (chronic myeloid leukemia) Status: Acute - Assessment and Plan (Free Text) Assessment: IMPRESSION; MULTIORGAN FAILURE/RESPIRATORY FAILURE ? ASPIRATION PNEUMONIA R/O ATYPICAL PNEUMONIA CARDIOGENIC SHOCK/THIRD DEGREE HEART BLO S/P TEMPORARY PACEMAKER.01/31/17 AMI HIV+VE CML S/P BONE MARROW TRANSPLANT DONOR MOTHER RADHA -MULTIFACTORIAL-SHOCK/SEPSIS/DRUGS. SEVERE METABOLIC ACIDOSIS-SEPSIS/ALFREDO/HYPOTENSION. PLAN; PANCULTURES. ESR CRP. LDH. CRYPTOCOCCAL ANTIGEN. LYMPHOCYTE SUBSET STUDIES HIV 1 RNA PCR QUANTITATIVE LEVELS HIV-1 GENOTYPE. G6 -PD DECREES iv zOSYN 2.25 EVERY 8 HOURLY. 01/31/17. VANCOMYCIN 1 G X1 DOSE TODAY VANCO RANDOM LEVEL IN A.M. AND NOTIFY ME. ADD CLINDAMYCIN 300 MG EVERY 6 HOURLY FOR POSSIBLE ASPIRATION/pcp COVERAGE ADD BY MOUTH PO ATOVAQUONE 750 MG BY MOUTH TWICE A DAY VIA NGT. HOLD ARV THERAPY FOR NOW. PATIENT WILL NEED TO ADJUST THE DOSES OF GENVOYA ARV THERAPY DUE TO HIS KIDNEY PROBLEMS. FOLLOW-UP PLASMA CORTISOL LEVEL. SPUTUM gRAM STAIN AND CULTURE, SPUTUM FOR PCP PATIENT WILL NEED HEMODIALYSIS IF REMAINS OLIGURIC. NEPHROLOGY ON BOARD. WILL FOLLOW ALONG WITH YOU AND MAKE RECOMMENDATIONS NEEDED.
[2017-01-31] MEDS ORDERED: Heparin25000 units/250ml 1/2NS 25,000 UNITS/250 ML BAG IV PRN (18:04)
[2017-01-31] MEDS ORDERED: Atovaquone 750 mg/5 ml Susp UD PO SCH (18:15)
[2017-01-31] MEDS: Clindamycin 300 MG in Sodium Chloride 0.9% 50 ML IVPB SCH ×2 (18:36→23:15)
--- NOTE | 2017-01-31 20:02 | CP.PCM.CON ---
History of Present Illness - History of Present Illness History of Present Illness: REASONS FOR CONSULT : OLIGURIC RADHA .. R/O H/O CKD .. PT F/U WITH DR SALMERON , WELL SERVICING RIG OPERATOR SEVERE METABOLIC ACIDOSIS SEPTIC SHOCK ALL EMR REVIEWED .. LABS REVIEWED .. CASE D/W DR MCKEON THE PROPOSAL DEVELOPMENT MANAGER OVER THE PHONE 56 year old male PMHx of CML diagnosed 1990 [resolved], HTN, HIV+ BIBA after having two syncopal episodes at home. states he woke up at 6 this AM feeling nauseous and had an episode of nonbloody nonbilious emesis that was mostly clear liquid. Patient then ate some cereal and coffee but had another episode of nonbloody but questionable bilious emesis with food contents. reported that the patient drove her to work at 6:55am this morning but upon returning home he had two episodes of syncope after which he called EMS. Patient has had no recent travel, sick contacts, recent illnesses. He has an extensive history at [facility] as per . 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 R IJ central line was placed in ICU and a temporary pacemaker was also placed in ICU. CXR taken to confirm placement of all lines. Patient was started on dopamine gtt, levophed gtt, and vasopressin gtt. Patient is se Past Patient History - Past Medical History & Family History Past Medical History?: Yes - Past Social History Smoking Status: Never Smoked - CARDIAC Hx Hypertension: Yes - ENDOCRINE/METABOLIC Hx Endocrine Disorders: Yes Hx Diabetes Mellitus Type 2: Yes - HEMATOLOGICAL/ONCOLOGICAL Hx Human Immunodeficiency Virus (HIV): Yes - MUSCULOSKELETAL/RHEUMATOLOGICAL Hx Musculoskeletal Disorders: Yes Hx Arthritis: Yes (gouty) - GENITOURINARY/GYNECOLOGICAL Hx Prostate Problems: Yes - PSYCHIATRIC Hx Substance Use: No - SURGICAL HISTORY Hx Surgeries: Yes Hx Orthopedic Surgery: Yes (bilateral hip replacement) - ANESTHESIA Hx Anesthesia: Yes Hx Anesthesia Reactions: No Meds Allergies/Adverse Reactions: Allergies Allergy/AdvReac Type Severity Reaction Status Date / Time No Known Allergies Allergy Verified 01/31/17 08:35 - Medications Medications: Current Medications Aspirin (Ecotrin) 81 mg PO DAILY [facility] Atovaquone (Mepron) 750 mg PO BID [facility] Last Admin: 01/31/17 18:23 Dose: 750 mg Clopidogrel Bisulfate (Plavix) 75 mg PO DAILY [facility] Famotidine (Pepcid) 20 mg IVP DAILY [facility] Hydrocortisone Sodium Succinate (Solu-Cortef) 100 mg IV Q8H [facility] Last Admin: 01/31/17 17:03 Dose: 100 mg Dopamine HCl/Dextrose (Dopamine 400mg/250ml D5w) 400 mg in 250 mls @ 6.124 mls/ hr IV .Q24H PRN; Protocol; 2 MCG/KG/MIN PRN Reason: TITRATE PER MD ORDER Last Titration: 01/31/17 18:50 Dose: 15.02 mcg/kg/min, 46 mls/hr Norepinephrine Bitartrate 4 mg (/ Dextrose) 254 mls @ 15.24 mls/hr IV .[id number] PRN; Protocol; 4 MCG/MIN PRN Reason: TITRATE PER MD ORDER Last Admin: 01/31/17 17:25 Dose: 30 mcg/min, 114.3 mls/hr Propofol (Diprivan) 1,000 mg in 100 mls @ 2.449 mls/hr IV .Q24H PRN; Protocol; 5 MCG/KG/MIN PRN Reason: TITRATE PER MD ORDER Piperacillin Sod/Tazobactam Sod (Zosyn 3.375 Gm Iv Premix) 3.375 gm in 50 mls @ 100 mls/hr IVPB Q6 [facility] Last Admin: 01/31/17 18:21 Dose: Not Given Vancomycin/Sodium Chloride (Vancocin) 1 gm in 200 mls @ 166.7 mls/hr IVPB DAILY [facility] Stop: 02/05/17 12:01 Last Admin: 01/31/17 13:17 Dose: 166.7 mls/hr Vasopressin 40 units/ Sodium (Chloride) 40 mls @ 0.6 mls/hr IV .Q24H [facility]; 0.01 UNITS/MIN PRN Reason: Protocol Last Titration: 01/31/17 15:07 Dose: 0.04 units/min, 2.4 mls/hr Midazolam HCl 100 mg/ Dextrose 100 mls @ 1.63 mls/hr IV .Q24H [facility]; 0.02 MG/KG/ HR PRN Reason: Protocol Last Titration: 01/31/17 18:10 Dose: 0.06 mg/kg/hr, 5 mls/hr Piperacillin Sod/Tazobactam Sod (Zosyn 2.25 Gm Iv Premix) 2.25 gm in 50 mls @ 100 mls/hr IVPB Q8 [facility] Clindamycin Phosphate 300 mg/ (Sodium Chloride) 52 mls @ 104 mls/hr IVPB Q6H [facility] Last Admin: 01/31/17 18:36 Dose: 104 mls/hr Heparin Sodium/Sodium Chloride (Heparin 96482 Units/250ml 1/2 Normal Saline) 25 ,000 units in 250 mls @ 9.798 mls/hr IV .Q24H PRN; Protocol; 12 UNITS/KG/HR PRN Reason: PROTOCOL Phenylephrine HCl 30 mg/ (Sodium Chloride) 253 mls @ 10.12 mls/hr IV .Q24H PRN ; Protocol; 20 MCG/MIN PRN Reason: TITRATE PER MD ORDER Lorazepam (Ativan) 1 mg IVP Q4 PRN PRN Reason: Pain, moderate (4-7) Last Admin: 01/31/17 19:04 Dose: 1 mg Rosuvastatin Calcium (Crestor) 20 mg PO HS [facility] Results - Vital Signs Recent Vital Signs: Last Vital Signs Temp 98.5 F 01/31/17 16:00 Pulse 99 H 01/31/17 19:30 Resp 33 H 01/31/17 19:30 BP 82/51 L 01/31/17 18:37 Pulse Ox 89 L 01/31/17 19:30 - Labs Result Diagrams: 01/31/17 17:20 01/31/17 17:20 Labs: Laboratory Results - last 24 hr 01/31/17 01/31/17 01/31/17 11:18 12:04 12:04 WBC 22.5 H D RBC 4.08 L Hgb 12.4 Hct 38.6 MCV 94.5 H MCH 30.3 MCHC 32.1 L RDW 14.2 Plt Count 298 MPV 8.0 Differential Comment D-Dimer, Quantitative Puncture Site Lra pCO2 28 L pO2 314 H HCO3 13.8 L ABG pH 7.23 L ABG Total CO2 12.6 L ABG O2 Saturation 99.6 H ABG Base Excess -14.3 L Rodrigo Test Pos ABG Potassium 4.2 A-a O2 Difference 364.0 Respiratory Index 1.2 Sodium 139.0 Chloride 113.0 H Glucose 107 Lactate 4.5 H* Mechanical Rate 14 FiO2 100.0 Tidal Volume 500 PEEP 5 Crit Value Called To Dr hopper Crit Value Called By Chris vance church business administrator Crit Value Read Back Y Blood Gas Notified Time 1124 Potassium Carbon Dioxide Anion Gap BUN Creatinine Est GFR ( Amer) Est GFR (Non-Af Amer) Random Glucose Lactic Acid Calcium Phosphorus Magnesium Total Bilirubin AST ALT Alkaline Phosphatase Total Creatine Kinase CK-MB (Mass) Troponin I, Quant Total Protein Albumin Globulin Albumin/Globulin Ratio Procalcitonin 7.09 H Plasma Cortisol PM Arterial Blood Potassium 4.2 Urine Opiates Screen Urine Methadone Screen Ur Barbiturates Screen Ur Phencyclidine Scrn Ur Amphetamines Screen U Benzodiazepines Scrn U Oth Cocaine Metabols U Cannabinoids Screen 01/31/17 01/31/17 01/31/17 12:04 16:46 17:15 WBC RBC Hgb Hct MCV MCH MCHC RDW Plt Count MPV Differential Comment D-Dimer, Quantitative Puncture Site A line pCO2 27 L pO2 172 H HCO3 13.5 L ABG pH 7.23 L ABG Total CO2 12.1 L ABG O2 Saturation 99.7 H ABG Base Excess -14.7 L Rodrigo Test Na ABG Potassium 4.2 A-a O2 Difference 222.0 Respiratory Index 1.3 Sodium 142 138.0 Chloride 112 H 108.0 H Glucose 182 H Lactate 3.8 H Mechanical Rate FiO2 60.0 Tidal Volume 500 PEEP 5 Crit Value Called To Crit Value Called By Crit Value Read Back Blood Gas Notified Time Potassium 4.7 Carbon Dioxide 15 L Anion Gap 20 BUN 55 H Creatinine 5.1 H Est GFR ( Amer) 14 Est GFR (Non-Af Amer) 12 Random Glucose 112 H Lactic Acid 3.4 H Calcium 7.0 L Phosphorus 2.9 Magnesium 2.0 Total Bilirubin 0.8 AST 39 ALT 26 Alkaline Phosphatase 35 L Total Creatine Kinase CK-MB (Mass) Troponin I, Quant Total Protein 5.5 L Albumin 3.0 L D Globulin 2.6 Albumin/Globulin Ratio 1.2 Procalcitonin Plasma Cortisol PM Arterial Blood Potassium 4.2 Urine Opiates Screen Urine Methadone Screen Ur Barbiturates Screen Ur Phencyclidine Scrn Ur Amphetamines Screen U Benzodiazepines Scrn U Oth Cocaine Metabols U Cannabinoids Screen 01/31/17 01/31/17 01/31/17 17:20 17:20 17:20 WBC 35.9 H D RBC 5.49 Hgb 16.8 D Hct 51.5 H MCV 93.7 MCH 30.6 MCHC 32.7 L RDW 14.2 Plt Count 360 MPV 8.1 Differential Comment D-Dimer, Quantitative 4165 H Puncture Site pCO2 pO2 HCO3 ABG pH ABG Total CO2 ABG O2 Saturation ABG Base Excess Rodrigo Test ABG Potassium A-a O2 Difference Respiratory Index Sodium 137 Chloride 113 H Glucose Lactate Mechanical Rate FiO2 Tidal Volume PEEP Crit Value Called To Crit Value Called By Crit Value Read Back Blood Gas Notified Time Potassium 4.3 Carbon Dioxide 13 L Anion Gap 15 BUN 55 H Creatinine 5.7 H Est GFR ( Amer) 12 Est GFR (Non-Af Amer) 10 Random Glucose 181 H Lactic Acid Calcium 6.6 L Phosphorus 2.5 Magnesium 1.7 Total Bilirubin 0.9 AST 72 H D ALT 29 Alkaline Phosphatase 34 L Total Creatine Kinase 584 H CK-MB (Mass) 80.8 H Troponin I, Quant 40.0000 H* Total Protein 5.2 L Albumin 2.4 L Globulin 2.8 Albumin/Globulin Ratio 0.8 L Procalcitonin Plasma Cortisol PM 118 H Arterial Blood Potassium Urine Opiates Screen Urine Methadone Screen Ur Barbiturates Screen Ur Phencyclidine Scrn Ur Amphetamines Screen U Benzodiazepines Scrn U Oth Cocaine Metabols U Cannabinoids Screen 01/31/17 17:23 WBC RBC Hgb Hct MCV MCH MCHC RDW Plt Count MPV Differential Comment D-Dimer, Quantitative Puncture Site pCO2 pO2 HCO3 ABG pH ABG Total CO2 ABG O2 Saturation ABG Base Excess Rodrigo Test ABG Potassium A-a O2 Difference Respiratory Index Sodium Chloride Glucose Lactate Mechanical Rate FiO2 Tidal Volume PEEP Crit Value Called To Crit Value Called By Crit Value Read Back Blood Gas Notified Time Potassium Carbon Dioxide Anion Gap BUN Creatinine Est GFR ( Amer) Est GFR (Non-Af Amer) Random Glucose Lactic Acid Calcium Phosphorus Magnesium Total Bilirubin AST ALT Alkaline Phosphatase Total Creatine Kinase CK-MB (Mass) Troponin I, Quant Total Protein Albumin Globulin Albumin/Globulin Ratio Procalcitonin Plasma Cortisol PM Arterial Blood Potassium Urine Opiates Screen Negative Urine Methadone Screen Negative Ur Barbiturates Screen Negative Ur Phencyclidine Scrn Negative Ur Amphetamines Screen Negative U Benzodiazepines Scrn Negative U Oth Cocaine Metabols Negative U Cannabinoids Screen Negative Assessment & Plan - Assessment and Plan (Free Text) Assessment: RADHA .. PROBABLY ATN .. SEPTIC SHOCK .. SEVERE MET ACIDOSIS R/O AN ELEMENT OF CKD MULTIPLE CO MORBIDITIES P : C/O IVF C/O PRESSORS C/O BICARB DRIP PT WILL PROBABLY WILL NEED HD IN AM IF NO IMPROVEMENT FOR A HD CATH IN AM TO START ON HD .. VASCULAR SURGERY ? IR ? OR PROPOSAL DEVELOPMENT MANAGER ? WILL KEEP A CLOSE EYE ON PT - Date & Time Date: 01/31/17 Time: 18:00
[2017-01-31] MEDS: Phenylephrine 30 MG in Sodium Chloride 0.9% 250 ML IV PRN ×2 (20:35→23:38)
[2017-01-31] MEDS: Piperacill/Tazo 2.25gm in Dex 2.25 GM/50 ML BAG IVPB SCH (21:00)
[2017-01-31 21:52] LABS: PLATELET ESTIMATE NORMAL (NORMAL)
[2017-01-31 21:59] LABS: BANDS 9 % (0-2); LYMPHOCYTE 3 % (20-40); MONOCYTE 6 % (0-10); NEUTROPHIL 82 % (50-75); TOTAL CELLS COUNTED 100
[2017-01-31 22:00] LABS: ANISOCYTOSIS SLIGHT; HYPERSEGMENTATION PRESENT; LARGE PLATELETS PRESENT; MICROCYTOSIS SLIGHT; POIKILOCYTOSIS SLIGHT; POLYCHROMIC SLIGHT; SMUDGE CELLS PRESENT; TOXIC GRANULATION PRESENT
--- NOTE | 2017-01-31 22:32 | CP.PCM.CON ---
History of Present Illness - History of Present Illness History of Present Illness: Patient seen and evaluated Admitted for Sepsis, Non STEMI/Complete Heart Block On TVP 56 year old male PMHx of CML diagnosed 1990 [resolved], HTN, HIV+ BIBA after having two syncopal episodes at home. states he woke up at 6 this AM feeling nauseous and had an episode of nonbloody nonbilious emesis that was mostly clear liquid. Patient then ate some cereal and coffee but had another episode of nonbloody but questionable bilious emesis with food contents. reported that the patient drove her to work at 6:55am this morning but upon returning home he had two episodes of syncope after which he called EMS. Patient has had no recent travel, sick contacts, recent illnesses. He has an extensive history at [facility] as per . 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 R IJ central line was placed in ICU and a temporary pacemaker was also placed in ICU. CXR taken to confirm placement of all lines. Patient was started on dopamine gtt, levophed gtt, and vasopressin gtt. Patient is sedated on propofol gtt. Review of Systems - Review of Systems Systems not reviewed;Unavailable: Intubated Physical Exam - Head Exam Head Exam: ATRAUMATIC, NORMAL INSPECTION, NORMOCEPHALIC - Eye Exam Eye Exam: Normal appearance. absent: Conjunctival injection, Scleral icterus - ENT Exam ENT Exam: Mucous Membranes Dry Additional comments: ET tube in place - Respiratory Exam Respiratory Exam: absent: Accessory Muscle Use, Respiratory Distress Additional comments: vent sounds heard throughout - Cardiovascular Exam Cardiovascular Exam: REGULAR RHYTHM, RRR, +S1, +S2 Additional comments: paced by temporary pacemaker - GI/Abdominal Exam GI & Abdominal Exam: Normal Bowel Sounds, Soft - Extremities Exam Extremities exam: Negative for: pedal edema - Neurological Exam Additional comments: sedated on propofol gtt - Skin Skin Exam: Dry, Intact Past Patient History - Past Medical History & Family History Past Medical History?: Yes - Past Social History Smoking Status: Never Smoked - CARDIAC Hx Hypertension: Yes - ENDOCRINE/METABOLIC Hx Endocrine Disorders: Yes Hx Diabetes Mellitus Type 2: Yes - HEMATOLOGICAL/ONCOLOGICAL Hx Human Immunodeficiency Virus (HIV): Yes - MUSCULOSKELETAL/RHEUMATOLOGICAL Hx Musculoskeletal Disorders: Yes Hx Arthritis: Yes (gouty) - GENITOURINARY/GYNECOLOGICAL Hx Prostate Problems: Yes - PSYCHIATRIC Hx Substance Use: No - SURGICAL HISTORY Hx Surgeries: Yes Hx Orthopedic Surgery: Yes (bilateral hip replacement) - ANESTHESIA Hx Anesthesia: Yes Hx Anesthesia Reactions: No Meds Allergies/Adverse Reactions: Allergies Allergy/AdvReac Type Severity Reaction Status Date / Time No Known Allergies Allergy Verified 01/31/17 08:35 - Medications Medications: Current Medications Aspirin (Ecotrin) 81 mg PO DAILY [facility] Atovaquone (Mepron) 750 mg PO BID [facility] Last Admin: 01/31/17 18:23 Dose: 750 mg Clopidogrel Bisulfate (Plavix) 75 mg PO DAILY [facility] Famotidine (Pepcid) 20 mg IVP DAILY [facility] Hydrocortisone Sodium Succinate (Solu-Cortef) 100 mg IV Q8H [facility] Last Admin: 01/31/17 17:03 Dose: 100 mg Dopamine HCl/Dextrose (Dopamine 400mg/250ml D5w) 400 mg in 250 mls @ 6.124 mls/ hr IV .Q24H PRN; Protocol; 2 MCG/KG/MIN PRN Reason: TITRATE PER MD ORDER Last Titration: 01/31/17 19:15 Dose: 20 mcg/kg/min, 61.235 mls/hr Norepinephrine Bitartrate 4 mg (/ Dextrose) 254 mls @ 15.24 mls/hr IV .[id number] PRN; Protocol; 4 MCG/MIN PRN Reason: TITRATE PER MD ORDER Last Admin: 01/31/17 20:51 Dose: 30 mcg/min, 114.3 mls/hr Propofol (Diprivan) 1,000 mg in 100 mls @ 2.449 mls/hr IV .Q24H PRN; Protocol; 5 MCG/KG/MIN PRN Reason: TITRATE PER MD ORDER Piperacillin Sod/Tazobactam Sod (Zosyn 3.375 Gm Iv Premix) 3.375 gm in 50 mls @ 100 mls/hr IVPB Q6 [facility] Last Admin: 01/31/17 18:21 Dose: Not Given Vancomycin/Sodium Chloride (Vancocin) 1 gm in 200 mls @ 166.7 mls/hr IVPB DAILY [facility] Stop: 02/05/17 12:01 Last Admin: 01/31/17 13:17 Dose: 166.7 mls/hr Vasopressin 40 units/ Sodium (Chloride) 40 mls @ 0.6 mls/hr IV .Q24H [facility]; 0.01 UNITS/MIN PRN Reason: Protocol Last Titration: 01/31/17 15:07 Dose: 0.04 units/min, 2.4 mls/hr Midazolam HCl 100 mg/ Dextrose 100 mls @ 1.63 mls/hr IV .Q24H [facility]; 0.02 MG/KG/ HR PRN Reason: Protocol Last Titration: 01/31/17 18:10 Dose: 0.06 mg/kg/hr, 5 mls/hr Piperacillin Sod/Tazobactam Sod (Zosyn 2.25 Gm Iv Premix) 2.25 gm in 50 mls @ 100 mls/hr IVPB Q8 [facility] Last Admin: 01/31/17 21:00 Dose: 100 mls/hr Clindamycin Phosphate 300 mg/ (Sodium Chloride) 52 mls @ 104 mls/hr IVPB Q6H [facility] Last Admin: 01/31/17 18:36 Dose: 104 mls/hr Heparin Sodium/Sodium Chloride (Heparin 79875 Units/250ml 1/2 Normal Saline) 25 ,000 units in 250 mls @ 9.798 mls/hr IV .Q24H PRN; Protocol; 12 UNITS/KG/HR PRN Reason: PROTOCOL Last Admin: 01/31/17 20:00 Dose: 12 units/kg/hr, 9.798 mls/hr Phenylephrine HCl 30 mg/ (Sodium Chloride) 253 mls @ 10.12 mls/hr IV .Q24H PRN ; Protocol; 20 MCG/MIN PRN Reason: TITRATE PER MD ORDER Last Admin: 01/31/17 20:35 Dose: 20 mcg/min, 10.12 mls/hr Lorazepam (Ativan) 1 mg IVP Q4 PRN PRN Reason: Pain, moderate (4-7) Last Admin: 01/31/17 19:04 Dose: 1 mg Rosuvastatin Calcium (Crestor) 20 mg PO HS [facility] Last Admin: 01/31/17 21:32 Dose: 20 mg Results - Vital Signs Recent Vital Signs: Last Vital Signs Temp 98.5 F 01/31/17 16:00 Pulse 82 01/31/17 22:10 Resp 36 H 01/31/17 22:10 BP 40/24 L 01/31/17 21:57 Pulse Ox 78 L 01/31/17 20:51 - Labs Result Diagrams: 01/31/17 17:20 01/31/17 17:20 Labs: Laboratory Results - last 24 hr 01/31/17 01/31/17 01/31/17 11:18 12:04 12:04 WBC 22.5 H D RBC 4.08 L Hgb 12.4 Hct 38.6 MCV 94.5 H MCH 30.3 MCHC 32.1 L RDW 14.2 Plt Count 298 MPV 8.0 Neutrophils % (Manual) Band Neutrophils % Lymphocytes % (Manual) Monocytes % (Manual) Differential Comment Hypersegmented Polys Smudge Cells Toxic Granulation Platelet Estimate Large Platelets Polychromasia Poikilocytosis (manual Anisocytosis (manual) Microcytosis (manual) D-Dimer, Quantitative Puncture Site Lra pCO2 28 L pO2 314 H HCO3 13.8 L ABG pH 7.23 L ABG Total CO2 12.6 L ABG O2 Saturation 99.6 H ABG Base Excess -14.3 L Rodrigo Test Pos ABG Potassium 4.2 A-a O2 Difference 364.0 Respiratory Index 1.2 Sodium 139.0 Chloride 113.0 H Glucose 107 Lactate 4.5 H* Mechanical Rate 14 FiO2 100.0 Tidal Volume 500 PEEP 5 Crit Value Called To Dr hopper Crit Value Called By Chris vance food service counter clerk Crit Value Read Back Y Blood Gas Notified Time 1124 Potassium Carbon Dioxide Anion Gap BUN Creatinine Est GFR ( Amer) Est GFR (Non-Af Amer) POC Glucose (mg/dL) Random Glucose Lactic Acid Calcium Phosphorus Magnesium Total Bilirubin AST ALT Alkaline Phosphatase Total Creatine Kinase CK-MB (Mass) Troponin I, Quant Total Protein Albumin Globulin Albumin/Globulin Ratio Procalcitonin 7.09 H Plasma Cortisol PM Arterial Blood Potassium 4.2 Urine Opiates Screen Urine Methadone Screen Ur Barbiturates Screen Ur Phencyclidine Scrn Ur Amphetamines Screen U Benzodiazepines Scrn U Oth Cocaine Metabols U Cannabinoids Screen 01/31/17 01/31/17 01/31/17 12:04 16:46 17:15 WBC RBC Hgb Hct MCV MCH MCHC RDW Plt Count MPV Neutrophils % (Manual) Band Neutrophils % Lymphocytes % (Manual) Monocytes % (Manual) Differential Comment Hypersegmented Polys Smudge Cells Toxic Granulation Platelet Estimate Large Platelets Polychromasia Poikilocytosis (manual Anisocytosis (manual) Microcytosis (manual) D-Dimer, Quantitative Puncture Site A line pCO2 27 L pO2 172 H HCO3 13.5 L ABG pH 7.23 L ABG Total CO2 12.1 L ABG O2 Saturation 99.7 H ABG Base Excess -14.7 L Rodrigo Test Na ABG Potassium 4.2 A-a O2 Difference 222.0 Respiratory Index 1.3 Sodium 142 138.0 Chloride 112 H 108.0 H Glucose 182 H Lactate 3.8 H Mechanical Rate FiO2 60.0 Tidal Volume 500 PEEP 5 Crit Value Called To Crit Value Called By Crit Value Read Back Blood Gas Notified Time Potassium 4.7 Carbon Dioxide 15 L Anion Gap 20 BUN 55 H Creatinine 5.1 H Est GFR ( Amer) 14 Est GFR (Non-Af Amer) 12 POC Glucose (mg/dL) Random Glucose 112 H Lactic Acid 3.4 H Calcium 7.0 L Phosphorus 2.9 Magnesium 2.0 Total Bilirubin 0.8 AST 39 ALT 26 Alkaline Phosphatase 35 L Total Creatine Kinase CK-MB (Mass) Troponin I, Quant Total Protein 5.5 L Albumin 3.0 L D Globulin 2.6 Albumin/Globulin Ratio 1.2 Procalcitonin Plasma Cortisol PM Arterial Blood Potassium 4.2 Urine Opiates Screen Urine Methadone Screen Ur Barbiturates Screen Ur Phencyclidine Scrn Ur Amphetamines Screen U Benzodiazepines Scrn U Oth Cocaine Metabols U Cannabinoids Screen 01/31/17 01/31/17 01/31/17 17:20 17:20 17:20 WBC 35.9 H D RBC 5.49 Hgb 16.8 D Hct 51.5 H MCV 93.7 MCH 30.6 MCHC 32.7 L RDW 14.2 Plt Count 360 MPV 8.1 Neutrophils % (Manual) 82 H Band Neutrophils % 9 H Lymphocytes % (Manual) 3 L Monocytes % (Manual) 6 Differential Comment Hypersegmented Polys Present Smudge Cells Present Toxic Granulation Present Platelet Estimate Normal Large Platelets Present Polychromasia Slight Poikilocytosis (manual Slight Anisocytosis (manual) Slight Microcytosis (manual) Slight D-Dimer, Quantitative 4165 H Puncture Site pCO2 pO2 HCO3 ABG pH ABG Total CO2 ABG O2 Saturation ABG Base Excess Rodrigo Test ABG Potassium A-a O2 Difference Respiratory Index Sodium 137 Chloride 113 H Glucose Lactate Mechanical Rate FiO2 Tidal Volume PEEP Crit Value Called To Crit Value Called By Crit Value Read Back Blood Gas Notified Time Potassium 4.3 Carbon Dioxide 13 L Anion Gap 15 BUN 55 H Creatinine 5.7 H Est GFR ( Amer) 12 Est GFR (Non-Af Amer) 10 POC Glucose (mg/dL) Random Glucose 181 H Lactic Acid Calcium 6.6 L Phosphorus 2.5 Magnesium 1.7 Total Bilirubin 0.9 AST 72 H D ALT 29 Alkaline Phosphatase 34 L Total Creatine Kinase 584 H CK-MB (Mass) 80.8 H Troponin I, Quant 40.0000 H* Total Protein 5.2 L Albumin 2.4 L Globulin 2.8 Albumin/Globulin Ratio 0.8 L Procalcitonin Plasma Cortisol PM 118 H Arterial Blood Potassium Urine Opiates Screen Urine Methadone Screen Ur Barbiturates Screen Ur Phencyclidine Scrn Ur Amphetamines Screen U Benzodiazepines Scrn U Oth Cocaine Metabols U Cannabinoids Screen 01/31/17 01/31/17 17:23 21:22 WBC RBC Hgb Hct MCV MCH MCHC RDW Plt Count MPV Neutrophils % (Manual) Band Neutrophils % Lymphocytes % (Manual) Monocytes % (Manual) Differential Comment Hypersegmented Polys Smudge Cells Toxic Granulation Platelet Estimate Large Platelets Polychromasia Poikilocytosis (manual Anisocytosis (manual) Microcytosis (manual) D-Dimer, Quantitative Puncture Site pCO2 pO2 HCO3 ABG pH ABG Total CO2 ABG O2 Saturation ABG Base Excess Rodrigo Test ABG Potassium A-a O2 Difference Respiratory Index Sodium Chloride Glucose Lactate Mechanical Rate FiO2 Tidal Volume PEEP Crit Value Called To Crit Value Called By Crit Value Read Back Blood Gas Notified Time Potassium Carbon Dioxide Anion Gap BUN Creatinine Est GFR ( Amer) Est GFR (Non-Af Amer) POC Glucose (mg/dL) 153 H Random Glucose Lactic Acid Calcium Phosphorus Magnesium Total Bilirubin AST ALT Alkaline Phosphatase Total Creatine Kinase CK-MB (Mass) Troponin I, Quant Total Protein Albumin Globulin Albumin/Globulin Ratio Procalcitonin Plasma Cortisol PM Arterial Blood Potassium Urine Opiates Screen Negative Urine Methadone Screen Negative Ur Barbiturates Screen Negative Ur Phencyclidine Scrn Negative Ur Amphetamines Screen Negative U Benzodiazepines Scrn Negative U Oth Cocaine Metabols Negative U Cannabinoids Screen Negative Assessment & Plan - Assessment and Plan (Free Text) Assessment: Assessment & Plan - Assessment and Plan (Free Text) Assessment: 56M found to have third degree heart block, + troponin Plan: Neuro: GCS 15 at time of initial exam: now intubated and sedated titrate diprivan to RASS of -2-3 CT Head due to syncopal episode Pulm: CXR shows no infiltrate or effusion CT Chest CV: Non STEMI Vs. Myocarditis Venous pacer inserted Dopamine/Norepinephrine drips started: titrate to MAP of 70 s/p 2g Ca Cl, 2 amp Bicarb ECHO: Normal EF JACE Panel Q6H w/ EKG Arterial line placement Heme: HgB stable Renal: Elevated BUN/Cr likely 2/2 sepsis and dehydration will hydrate accordingly and monitor GI: CT abdomen to eval for source of sepsis NGT inserted Will consider tube feeds after CT scan : Perez insertion will monitor renal fx, likely declined 2/2 septic shock ID: blood cultures and urine culture drawn Vanc 1g Q24 Zosyn 3.375mg Q6H DVT proph - SCDs, HSQ Q12H GI proph - Pepcid Guarded prognosis
[2017-01-31 22:52] LABS: ARTERIAL BLOOD GAS PCO2 42 mm/Hg (35-45); ARTERIAL BLOOD GAS PH 6.95 (7.35-7.45); ARTERIAL BLOOD GAS PO2 276 mm/Hg (80-100); ARTERIAL BLOOD GAS TCO2 10.5 mmol/L (22-28)
[2017-01-31] MEDS ORDERED: Sodium Bicarbonate (8.4%) 50 Meq Syringe ONE (22:56)
[2017-01-31] MEDS ORDERED: Sodium Bicarbonate 8.4% 150 MEQ in Dextrose 5% In Water 1,000 ML IV SCH (23:00)
[2017-01-31 23:07] LABS: CK-MB 85.9 ng/mL (0.0-3.38)
[2017-01-31] MEDS ORDERED: Sodium Bicarbonate (8.4%) 50 Meq Syringe IVP STA ×2 (23:16→23:17)
[2017-02-01] MEDS ORDERED: Sodium Bicarbonate (8.4%) 50 Meq Syringe IVP ONE ×4 (00:01→03:30)
[2017-02-01] MEDS ORDERED: Sodium Bicarbonate (8.4%) 50 Meq Syringe ONE (00:01)
[2017-02-01 00:36] LABS: ARTERIAL BLOOD GAS HCO3 2.8 mmol/L (21-28); ARTERIAL BLOOD GAS HEMOGLOBIN 19.7 g/dL (11.7-17.4); ARTERIAL BLOOD GAS O2 SAT 98.6 % (95-98); ARTERIAL BLOOD GAS PCO2 34 mm/Hg (35-45); ARTERIAL BLOOD GAS PH 6.84 (7.35-7.45); ARTERIAL BLOOD GAS PO2 137 mm/Hg (80-100); ARTERIAL BLOOD GAS TCO2 6.8 mmol/L (22-28)
[2017-02-01] MEDS ORDERED: SODIUM BICARBONATE IV SCH ×3 (00:45→03:27)
[2017-02-01] MEDS ORDERED: WATER IV SCH (00:45)
[2017-02-01] MEDS ORDERED: DEXTROSE 5% IV SCH (00:45)
[2017-02-01 01:43] LABS: ARTERIAL BLOOD GAS HCO3 63.4 mmol/L (21-28); ARTERIAL BLOOD GAS O2 SAT 95.8 % (95-98); ARTERIAL BLOOD GAS PCO2 143 mm/Hg (35-45); ARTERIAL BLOOD GAS PO2 78 mm/Hg (80-100)
[2017-02-01 02:02] LABS: ARTERIAL BLOOD GAS HCO3 3.9 mmol/L (21-28); ARTERIAL BLOOD GAS HEMOGLOBIN 18.3 g/dL (11.7-17.4); ARTERIAL BLOOD GAS O2 SAT 98.4 % (95-98); ARTERIAL BLOOD GAS PCO2 54 mm/Hg (35-45); ARTERIAL BLOOD GAS PH 6.81 (7.35-7.45); ARTERIAL BLOOD GAS PO2 147 mm/Hg (80-100); ARTERIAL BLOOD GAS TCO2 10.3 mmol/L (22-28)
[2017-02-01] MEDS ORDERED: DEXTROSE IV SCH ×2 (02:15→03:27)
[2017-02-01] MEDS ORDERED: NS IV SCH ×2 (02:15→03:27)
[2017-02-01] MEDS: Phenylephrine 30 MG in Sodium Chloride 0.9% 250 ML IV PRN (02:35)
[2017-02-01 03:08] LABS: ARTERIAL BLOOD GAS HCO3 6.4 mmol/L (21-28); ARTERIAL BLOOD GAS HEMOGLOBIN 17.5 g/dL (11.7-17.4); ARTERIAL BLOOD GAS O2 SAT 99.2 % (95-98); ARTERIAL BLOOD GAS PCO2 53 mm/Hg (35-45); ARTERIAL BLOOD GAS PH 6.89 (7.35-7.45); ARTERIAL BLOOD GAS PO2 153 mm/Hg (80-100); ARTERIAL BLOOD GAS TCO2 11.7 mmol/L (22-28)
[2017-02-01] MEDS: DOPamine 400mg/250ml D5W 400 MG/250 ML BAG IV PRN (03:18)
[2017-02-01] MEDS: Piperacill/Tazo 3.375gm in Dex 3.375 GM/50 ML BAG IVPB SCH (05:00)
[2017-02-01] MEDS: Piperacill/Tazo 2.25gm in Dex 2.25 GM/50 ML BAG IVPB SCH (05:00)
[2017-02-01] MEDS: Clindamycin 300 MG in Sodium Chloride 0.9% 50 ML IVPB SCH (05:15)
[2017-02-01 05:58] VITALS: BP 121/81; PULSE 153; O2SAT 23
[2017-02-01 06:37] VITALS: RESP 15; TEMP 97.4
--- NOTE | 2017-02-01 07:17 | CP.PCM.PRO ---
Pronouncement of Note - Clinical Findings Physical Exam: No Response Verbal/Painful Stimuli, Absent Peripheral Pulses{ Carotid & Femoral}, Absent Heart & Breath Sounds, No Pupillary Light Reflex, Pupils Fixed & Dilated - Pronouncement Time Time of Pronouncement of : 05:34 - Notifications Pronouncement Notifications: Family Notified Meat Team Lead Notified: Yes - Autopsy Autopsy Requested: Yes - [place] [id number]
--- NOTE | 2017-02-01 07:23 | CP.CCUPN ---
CCU Subjective - Physician Review Events Since Last Encounter (Free Text): 02/01/17 07:19 patient received at 7:00pm hypotensive on 3 pressors,started on Phenylephrine He remained hypotensive,acidotic Coded and resuscitated 3 times.remained acitodic inspite of Bicarb IVpush and drip Unstable for CT scans elevated Troponins,seen by Cardiologists had transvenous pacemaker antibiotics as per ID 4th Code unsuccesful and patient prnounced at 5:34am Spoke to emergency medical technician basic ,released at 6:31am by Timur Spoke to family, and sons at bedside CCU Objective - Vital Signs / Intake & Output Vital Signs (Last 4 hours): Vital Signs Temp Pulse Resp BP Pulse Ox 02/01/17 06:30 15 02/01/17 06:20 23 02/01/17 06:10 0 L 02/01/17 06:00 0 L 02/01/17 05:50 13 02/01/17 05:40 15 02/01/17 05:30 96 H 02/01/17 05:20 153 H 24 02/01/17 05:10 82 24 02/01/17 05:09 82 24 121/81 02/01/17 05:00 42 L 5 L 23 L 02/01/17 04:50 148 H 60 L 02/01/17 04:40 136 H 56 H 63 L 02/01/17 04:38 130 H 75 H 124/56 L 81 L 02/01/17 04:36 41 L 22 129/107 H 02/01/17 04:30 82 22 02/01/17 04:20 96 H 31 H 02/01/17 04:10 99 H 30 H 02/01/17 04:09 100 H 25 H 99/64 L 02/01/17 04:00 97.4 F L 91 H 21 02/01/17 03:50 92 H 29 H 02/01/17 03:40 92 H 30 H 02/01/17 03:30 91 H 26 H 02/01/17 03:20 90 20 Intake and Output (Last 8hrs): Intake & Output 01/31/17 02/01/17 02/01/17 22:59 06:59 14:59 Intake Total 2218.8 3926.2 Output Total 20 Balance 2198.8 3926.2 Intake: IV 507 1257 Intake, IV Amount 1711.8 2669.2 Cordis Port 183 427 Cordis Stockcock PB 7.2 16.8 Cordis Stopcock Port 1 342 798 Cordis Stopcock Port 2 273 637 Left Antecubital 7.5 17.5 Right Forearm 29.1 67.9 Right Forearm Y Port 15 35 Right Hand 60 670 cordiz of transvenous 10 pacemaker piggy back side port of 469.0 pacemaker piggyback side port of 12.0 pacemaker side port pacemaker 304.0 Oral 0 0 Output: Urine 20 Urethral (Perez) 20 Stool 0 Other: # Voids Urethral (Perez) 55 - Medications Active Medications: Active Medications Generic Name Dose Route Start Last Admin Trade Name Freq PRN Reason Stop Dose Admin Aspirin 81 mg 02/01/17 10:00 Ecotrin PO DAILY YUMIKO Atovaquone 750 mg 01/31/17 18:15 01/31/17 18:23 Mepron PO 750 mg BID YUMIKO Administration Clopidogrel Bisulfate 75 mg 02/01/17 10:00 Plavix PO DAILY YUMIKO Famotidine 20 mg 02/01/17 10:00 Pepcid IVP DAILY YUMIKO Hydrocortisone Sodium Succinate 100 mg 01/31/17 16:45 01/31/17 23:00 Solu-Cortef IV 100 mg Q8H YUMIKO Administration Dopamine HCl/Dextrose 400 mg in 250 mls @ 6.124 mls/hr 01/31/17 09:37 03:18 Dopamine 400mg/250ml D5w IV 20 mcg/kg/min .Q24H PRN 61.235 mls/hr TITRATE PER MD ORDER Administration Protocol 2 MCG/KG/MIN Norepinephrine Bitartrate 4 mg 254 mls @ 15.24 mls/hr 01/31/17 11:11 02:37 / Dextrose IV 30 mcg/min .[id number] PRN 114.3 mls/hr TITRATE PER MD ORDER Administration Protocol 4 MCG/MIN Propofol 1,000 mg in 100 mls @ 2.449 mls/hr 01/31/17 11:11 01/31/17 21:15 Diprivan IV 5 mcg/kg/min .Q24H PRN 2.449 mls/hr TITRATE PER MD ORDER Administration Protocol 5 MCG/KG/MIN Piperacillin Sod/Tazobactam Sod 3.375 gm in 50 mls @ 100 mls/hr 01/31/17 13: 00 02/01/17 05:00 Zosyn 3.375 Gm Iv Premix IVPB Not Given Q6 YUMIKO Vancomycin/Sodium Chloride 1 gm in 200 mls @ 166.7 mls/hr 01/31/17 12:00 01/12 13:17 Vancocin IVPB 02/05/17 12:01 166.7 mls/hr DAILY [facility] Administration Vasopressin 40 units/ Sodium 40 mls @ 0.6 mls/hr 01/31/17 14:30 01/31/17 15: 07 Chloride IV 0.04 units/min .Q24H YUMIKO 2.4 mls/hr Protocol Titration 0.01 UNITS/MIN Midazolam HCl 100 mg/ Dextrose 100 mls @ 1.63 mls/hr 01/31/17 17:15 01/31/17 18:10 IV 0.06 mg/kg/hr .Q24H YUMIKO 5 mls/hr Protocol Titration 0.02 MG/KG/HR Piperacillin Sod/Tazobactam Sod 2.25 gm in 50 mls @ 100 mls/hr 01/31/17 22:00 02/01/17 05:00 Zosyn 2.25 Gm Iv Premix IVPB Not Given Q8 [facility] Clindamycin Phosphate 300 mg/ 52 mls @ 104 mls/hr 01/31/17 18:15 02/01/17 05: 15 Sodium Chloride IVPB Not Given Q6H [facility] Heparin Sodium/Sodium Chloride 25,000 units in 250 mls @ 9.798 mls/hr 18:04 01/31/17 20:00 Heparin 89390 Units/250ml 1/2 Normal Saline IV 12 units/kg/hr .Q24H PRN 9.798 mls/hr PROTOCOL Administration Protocol 12 UNITS/KG/HR Phenylephrine HCl 30 mg/ 253 mls @ 10.12 mls/hr 01/31/17 19:26 02/01/17 02:35 Sodium Chloride IV 180 mcg/min .Q24H PRN 91.08 mls/hr TITRATE PER MD ORDER Administration Protocol 20 MCG/MIN Sodium Bicarbonate 200 meq/ 1,000 mls @ 125 mls/hr 02/01/17 03:27 02/01/17 03 :30 Dextrose/Sodium Chloride IV 125 mls/hr .Q8H YUMIKO Administration Lorazepam 1 mg 01/31/17 18:49 01/31/17 19:04 Ativan IVP 1 mg Q4 PRN Administration Pain, moderate (4-7) Rosuvastatin Calcium 20 mg 01/31/17 22:00 01/31/17 21:32 Crestor PO 20 mg HS YUMIKO Administration - Patient Studies Lab Studies: Lab Studies 02/01/17 02/01/17 02/01/17 Range/Units 03:04 01:58 01:40 WBC (4.8-10.8) K/uL RBC (4.40-5.90) Mil/uL Hgb (12.0-18.0) g/dL Hct (35.0-51.0) % MCV (80.0-94.0) fL MCH (27.0-31.0) pg MCHC (33.0-37.0) g/dL RDW (11.5-14.5) % Plt Count (130-400) K/uL MPV (7.2-11.7) fL Neutrophils % (Manual) (50-75) % Band Neutrophils % (0-2) % Lymphocytes % (Manual) (20-40) % Monocytes % (Manual) (0-10) % Differential Comment Hypersegmented Polys Smudge Cells Toxic Granulation Platelet Estimate (NORMAL) Large Platelets Polychromasia Poikilocytosis (manual Anisocytosis (manual) Microcytosis (manual) D-Dimer, Quantitative (0-243) ng/mlDDU Puncture Site Genny Genny Genny pCO2 53 H 54 H 143 H* (35-45) mm/Hg pO2 153 H 147 H 78 L (80-100) mm/Hg HCO3 6.4 L* 3.9 L* 63.4 H* (21-28) mmol/L ABG pH 6.89 L* 6.81 L* 7.40 (7.35-7.45) ABG Total CO2 11.7 L 10.3 L 93.0 H (22-28) mmol/L ABG O2 Saturation 99.2 H 98.4 H 95.8 (95-98) % ABG Base Excess -23.7 L -26.9 L 49.5 H (-2.0-3.0) mmol/L ABG Hemoglobin 17.5 H 18.3 H 16.0 (11.7-17.4) g/dL ABG Carboxyhemoglobin 1.2 0.8 1.4 (0.5-1.5) % POC ABG HHb (Measured) 0.8 1.6 4.1 (0.0-5.0) % ABG Methemoglobin 0.5 0.6 0.7 (0.0-3.0) % Rodrigo Test Na Na Na ABG Potassium (3.6-5.2) mmol/L A-a O2 Difference 494.0 499.0 456.0 mm/Hg Respiratory Index 3.2 3.4 5.8 Hgb O2 Saturation 97.5 97.0 93.8 L (95.0-98.0) % Sodium (132-148) mmol/l Chloride (98-107) mmol/L Glucose (75-110) mg/dl Lactate (0.7-2.1) mmol/L Mechanical Rate 20 12 12 FiO2 100.0 100.0 100.0 % Tidal Volume 500 500 500 PEEP 5 5 5 Crit Value Called To Angelia ramos rn Crit Value Called By Carly semiconductor dies loader Carly semiconductor dies loader Carly semiconductor dies loader Crit Value Read Back Y Y Y Blood Gas Notified Time 308 202 143 Potassium (3.6-5.2) mmol/L Carbon Dioxide (22-30) mmol/L Anion Gap (10-20) BUN (9-20) mg/dL Creatinine (0.8-1.5) MG/DL Est GFR ( Amer) Est GFR (Non-Af Amer) POC Glucose (mg/dL) (65-110) mg/dL Random Glucose (75-110) mg/dL Lactic Acid (0.7-2.1) mmol/L Calcium (8.6-10.4) mg/dl Phosphorus (2.5-4.5) mg/dL Magnesium (1.6-2.3) mg/dL Total Bilirubin (0.2-1.3) mg/dL AST (17-59) U/L ALT (21-72) U/L Alkaline Phosphatase (38-126) U/L Total Creatine Kinase (55-170) U/L CK-MB (Mass) (0.0-3.38) ng/mL Troponin I, Quant (0.00-0.120) ng/mL Total Protein (6.3-8.3) g/dL Albumin (3.5-5.0) g/dL Globulin (2.2-3.9) gm/dL Albumin/Globulin Ratio (1.0-2.1) Procalcitonin (0.19-0.49) NG/ML Plasma Cortisol PM (1.7-14.1) ug/dL Arterial Blood Potassium (3.6-5.2) mmol/L Urine Opiates Screen (NEGATIVE) Urine Methadone Screen (NEGATIVE) Ur Barbiturates Screen (NEGATIVE) Ur Phencyclidine Scrn (NEGATIVE) Ur Amphetamines Screen (NEGATIVE) U Benzodiazepines Scrn (NEGATIVE) U Oth Cocaine Metabols (NEGATIVE) U Cannabinoids Screen (NEGATIVE) 02/01/17 01/31/17 01/31/17 Range/Units 00:33 22:45 22:40 WBC (4.8-10.8) K/uL RBC (4.40-5.90) Mil/uL Hgb (12.0-18.0) g/dL Hct (35.0-51.0) % MCV (80.0-94.0) fL MCH (27.0-31.0) pg MCHC (33.0-37.0) g/dL RDW (11.5-14.5) % Plt Count (130-400) K/uL MPV (7.2-11.7) fL Neutrophils % (Manual) (50-75) % Band Neutrophils % (0-2) % Lymphocytes % (Manual) (20-40) % Monocytes % (Manual) (0-10) % Differential Comment Hypersegmented Polys Smudge Cells Toxic Granulation Platelet Estimate (NORMAL) Large Platelets Polychromasia Poikilocytosis (manual Anisocytosis (manual) Microcytosis (manual) D-Dimer, Quantitative (0-243) ng/mlDDU Puncture Site [place]nell A line pCO2 34 L 42 (35-45) mm/Hg pO2 137 H 276 H (80-100) mm/Hg HCO3 2.8 L* 7.0 L* (21-28) mmol/L ABG pH 6.84 L* 6.95 L* (7.35-7.45) ABG Total CO2 6.8 L 10.5 L (22-28) mmol/L ABG O2 Saturation 98.6 H 100.0 H (95-98) % ABG Base Excess -28.3 L -23.0 L (-2.0-3.0) mmol/L ABG Hemoglobin 19.7 H 19.0 H (11.7-17.4) g/dL ABG Carboxyhemoglobin 1.4 1.0 (0.5-1.5) % POC ABG HHb (Measured) 1.4 0.0 (0.0-5.0) % ABG Methemoglobin 0.5 0.8 (0.0-3.0) % Rodrigo Test Na Na ABG Potassium (3.6-5.2) mmol/L A-a O2 Difference 534.0 385.0 mm/Hg Respiratory Index 3.9 1.4 Hgb O2 Saturation 96.8 98.2 H (95.0-98.0) % Sodium (132-148) mmol/l Chloride (98-107) mmol/L Glucose (75-110) mg/dl Lactate (0.7-2.1) mmol/L Mechanical Rate 12 FiO2 100.0 100.0 % Tidal Volume 500 PEEP 5 Crit Value Called To Dr. pedro villarreal Crit Value Called By Carly herrera Crit Value Read Back Y Y Blood Gas Notified Time 36 2250 Potassium (3.6-5.2) mmol/L Carbon Dioxide (22-30) mmol/L Anion Gap (10-20) BUN (9-20) mg/dL Creatinine (0.8-1.5) MG/DL Est GFR ( Amer) Est GFR (Non-Af Amer) POC Glucose (mg/dL) (65-110) mg/dL Random Glucose (75-110) mg/dL Lactic Acid (0.7-2.1) mmol/L Calcium (8.6-10.4) mg/dl Phosphorus (2.5-4.5) mg/dL Magnesium (1.6-2.3) mg/dL Total Bilirubin (0.2-1.3) mg/dL AST (17-59) U/L ALT (21-72) U/L Alkaline Phosphatase (38-126) U/L Total Creatine Kinase 629 H (55-170) U/L CK-MB (Mass) 85.9 H (0.0-3.38) ng/mL Troponin I, Quant 64.0000 H* (0.00-0.120) ng/mL Total Protein (6.3-8.3) g/dL Albumin (3.5-5.0) g/dL Globulin (2.2-3.9) gm/dL Albumin/Globulin Ratio (1.0-2.1) Procalcitonin (0.19-0.49) NG/ML Plasma Cortisol PM (1.7-14.1) ug/dL Arterial Blood Potassium (3.6-5.2) mmol/L Urine Opiates Screen (NEGATIVE) Urine Methadone Screen (NEGATIVE) Ur Barbiturates Screen (NEGATIVE) Ur Phencyclidine Scrn (NEGATIVE) Ur Amphetamines Screen (NEGATIVE) U Benzodiazepines Scrn (NEGATIVE) U Oth Cocaine Metabols (NEGATIVE) U Cannabinoids Screen (NEGATIVE) 01/31/17 01/31/17 01/31/17 Range/Units 21:22 17:23 17:20 WBC (4.8-10.8) K/uL RBC (4.40-5.90) Mil/uL Hgb (12.0-18.0) g/dL Hct (35.0-51.0) % MCV (80.0-94.0) fL MCH (27.0-31.0) pg MCHC (33.0-37.0) g/dL RDW (11.5-14.5) % Plt Count (130-400) K/uL MPV (7.2-11.7) fL Neutrophils % (Manual) (50-75) % Band Neutrophils % (0-2) % Lymphocytes % (Manual) (20-40) % Monocytes % (Manual) (0-10) % Differential Comment Hypersegmented Polys Smudge Cells Toxic Granulation Platelet Estimate (NORMAL) Large Platelets Polychromasia Poikilocytosis (manual Anisocytosis (manual) Microcytosis (manual) D-Dimer, Quantitative 4165 H (0-243) ng/mlDDU Puncture Site pCO2 (35-45) mm/Hg pO2 (80-100) mm/Hg HCO3 (21-28) mmol/L ABG pH (7.35-7.45) ABG Total CO2 (22-28) mmol/L ABG O2 Saturation (95-98) % ABG Base Excess (-2.0-3.0) mmol/L ABG Hemoglobin (11.7-17.4) g/dL ABG Carboxyhemoglobin (0.5-1.5) % POC ABG HHb (Measured) (0.0-5.0) % ABG Methemoglobin (0.0-3.0) % Rodrigo Test ABG Potassium (3.6-5.2) mmol/L A-a O2 Difference mm/Hg Respiratory Index Hgb O2 Saturation (95.0-98.0) % Sodium (132-148) mmol/l Chloride (98-107) mmol/L Glucose (75-110) mg/dl Lactate (0.7-2.1) mmol/L Mechanical Rate FiO2 % Tidal Volume PEEP Crit Value Called To Crit Value Called By Crit Value Read Back Blood Gas Notified Time Potassium (3.6-5.2) mmol/L Carbon Dioxide (22-30) mmol/L Anion Gap (10-20) BUN (9-20) mg/dL Creatinine (0.8-1.5) MG/DL Est GFR ( Amer) Est GFR (Non-Af Amer) POC Glucose (mg/dL) 153 H (65-110) mg/dL Random Glucose (75-110) mg/dL Lactic Acid (0.7-2.1) mmol/L Calcium (8.6-10.4) mg/dl Phosphorus (2.5-4.5) mg/dL Magnesium (1.6-2.3) mg/dL Total Bilirubin (0.2-1.3) mg/dL AST (17-59) U/L ALT (21-72) U/L Alkaline Phosphatase (38-126) U/L Total Creatine Kinase (55-170) U/L CK-MB (Mass) (0.0-3.38) ng/mL Troponin I, Quant (0.00-0.120) ng/mL Total Protein (6.3-8.3) g/dL Albumin (3.5-5.0) g/dL Globulin (2.2-3.9) gm/dL Albumin/Globulin Ratio (1.0-2.1) Procalcitonin (0.19-0.49) NG/ML Plasma Cortisol PM (1.7-14.1) ug/dL Arterial Blood Potassium (3.6-5.2) mmol/L Urine Opiates Screen Negative (NEGATIVE) Urine Methadone Screen Negative (NEGATIVE) Ur Barbiturates Screen Negative (NEGATIVE) Ur Phencyclidine Scrn Negative (NEGATIVE) Ur Amphetamines Screen Negative (NEGATIVE) U Benzodiazepines Scrn Negative (NEGATIVE) U Oth Cocaine Metabols Negative (NEGATIVE) U Cannabinoids Screen Negative (NEGATIVE) 01/31/17 01/31/17 01/31/17 Range/Units 17:20 17:20 17:15 WBC 35.9 H D (4.8-10.8) K/uL RBC 5.49 (4.40-5.90) Mil/uL Hgb 16.8 D (12.0-18.0) g/dL Hct 51.5 H (35.0-51.0) % MCV 93.7 (80.0-94.0) fL MCH 30.6 (27.0-31.0) pg MCHC 32.7 L (33.0-37.0) g/dL RDW 14.2 (11.5-14.5) % Plt Count 360 (130-400) K/uL MPV 8.1 (7.2-11.7) fL Neutrophils % (Manual) 82 H (50-75) % Band Neutrophils % 9 H (0-2) % Lymphocytes % (Manual) 3 L (20-40) % Monocytes % (Manual) 6 (0-10) % Differential Comment Hypersegmented Polys Present Smudge Cells Present Toxic Granulation Present Platelet Estimate Normal (NORMAL) Large Platelets Present Polychromasia Slight Poikilocytosis (manual Slight Anisocytosis (manual) Slight Microcytosis (manual) Slight D-Dimer, Quantitative (0-243) ng/mlDDU Puncture Site A line pCO2 27 L (35-45) mm/Hg pO2 172 H (80-100) mm/Hg HCO3 13.5 L (21-28) mmol/L ABG pH 7.23 L (7.35-7.45) ABG Total CO2 12.1 L (22-28) mmol/L ABG O2 Saturation 99.7 H (95-98) % ABG Base Excess -14.7 L (-2.0-3.0) mmol/L ABG Hemoglobin (11.7-17.4) g/dL ABG Carboxyhemoglobin (0.5-1.5) % POC ABG HHb (Measured) (0.0-5.0) % ABG Methemoglobin (0.0-3.0) % Rodrigo Test Na ABG Potassium 4.2 (3.6-5.2) mmol/L A-a O2 Difference 222.0 mm/Hg Respiratory Index 1.3 Hgb O2 Saturation (95.0-98.0) % Sodium 137 138.0 (132-148) mmol/l Chloride 113 H 108.0 H (98-107) mmol/L Glucose 182 H (75-110) mg/dl Lactate 3.8 H (0.7-2.1) mmol/L Mechanical Rate FiO2 60.0 % Tidal Volume 500 PEEP 5 Crit Value Called To Crit Value Called By Crit Value Read Back Blood Gas Notified Time Potassium 4.3 (3.6-5.2) mmol/L Carbon Dioxide 13 L (22-30) mmol/L Anion Gap 15 (10-20) BUN 55 H (9-20) mg/dL Creatinine 5.7 H (0.8-1.5) MG/DL Est GFR ( Amer) 12 Est GFR (Non-Af Amer) 10 POC Glucose (mg/dL) (65-110) mg/dL Random Glucose 181 H (75-110) mg/dL Lactic Acid (0.7-2.1) mmol/L Calcium 6.6 L (8.6-10.4) mg/dl Phosphorus 2.5 (2.5-4.5) mg/dL Magnesium 1.7 (1.6-2.3) mg/dL Total Bilirubin 0.9 (0.2-1.3) mg/dL AST 72 H D (17-59) U/L ALT 29 (21-72) U/L Alkaline Phosphatase 34 L (38-126) U/L Total Creatine Kinase 584 H (55-170) U/L CK-MB (Mass) 80.8 H (0.0-3.38) ng/mL Troponin I, Quant 40.0000 H* (0.00-0.120) ng/mL Total Protein 5.2 L (6.3-8.3) g/dL Albumin 2.4 L (3.5-5.0) g/dL Globulin 2.8 (2.2-3.9) gm/dL Albumin/Globulin Ratio 0.8 L (1.0-2.1) Procalcitonin (0.19-0.49) NG/ML Plasma Cortisol PM 118 H (1.7-14.1) ug/dL Arterial Blood Potassium 4.2 (3.6-5.2) mmol/L Urine Opiates Screen (NEGATIVE) Urine Methadone Screen (NEGATIVE) Ur Barbiturates Screen (NEGATIVE) Ur Phencyclidine Scrn (NEGATIVE) Ur Amphetamines Screen (NEGATIVE) U Benzodiazepines Scrn (NEGATIVE) U Oth Cocaine Metabols (NEGATIVE) U Cannabinoids Screen (NEGATIVE) 01/31/17 01/31/17 01/31/17 Range/Units 16:46 12:04 12:04 WBC (4.8-10.8) K/uL RBC (4.40-5.90) Mil/uL Hgb (12.0-18.0) g/dL Hct (35.0-51.0) % MCV (80.0-94.0) fL MCH (27.0-31.0) pg MCHC (33.0-37.0) g/dL RDW (11.5-14.5) % Plt Count (130-400) K/uL MPV (7.2-11.7) fL Neutrophils % (Manual) (50-75) % Band Neutrophils % (0-2) % Lymphocytes % (Manual) (20-40) % Monocytes % (Manual) (0-10) % Differential Comment Hypersegmented Polys Smudge Cells Toxic Granulation Platelet Estimate (NORMAL) Large Platelets Polychromasia Poikilocytosis (manual Anisocytosis (manual) Microcytosis (manual) D-Dimer, Quantitative (0-243) ng/mlDDU Puncture Site pCO2 (35-45) mm/Hg pO2 (80-100) mm/Hg HCO3 (21-28) mmol/L ABG pH (7.35-7.45) ABG Total CO2 (22-28) mmol/L ABG O2 Saturation (95-98) % ABG Base Excess (-2.0-3.0) mmol/L ABG Hemoglobin (11.7-17.4) g/dL ABG Carboxyhemoglobin (0.5-1.5) % POC ABG HHb (Measured) (0.0-5.0) % ABG Methemoglobin (0.0-3.0) % Rodrigo Test ABG Potassium (3.6-5.2) mmol/L A-a O2 Difference mm/Hg Respiratory Index Hgb O2 Saturation (95.0-98.0) % Sodium 142 (132-148) mmol/l Chloride 112 H (98-107) mmol/L Glucose (75-110) mg/dl Lactate (0.7-2.1) mmol/L Mechanical Rate FiO2 % Tidal Volume PEEP Crit Value Called To Crit Value Called By Crit Value Read Back Blood Gas Notified Time Potassium 4.7 (3.6-5.2) mmol/L Carbon Dioxide 15 L (22-30) mmol/L Anion Gap 20 (10-20) BUN 55 H (9-20) mg/dL Creatinine 5.1 H (0.8-1.5) MG/DL Est GFR ( Amer) 14 Est GFR (Non-Af Amer) 12 POC Glucose (mg/dL) (65-110) mg/dL Random Glucose 112 H (75-110) mg/dL Lactic Acid 3.4 H (0.7-2.1) mmol/L Calcium 7.0 L (8.6-10.4) mg/dl Phosphorus 2.9 (2.5-4.5) mg/dL Magnesium 2.0 (1.6-2.3) mg/dL Total Bilirubin 0.8 (0.2-1.3) mg/dL AST 39 (17-59) U/L ALT 26 (21-72) U/L Alkaline Phosphatase 35 L (38-126) U/L Total Creatine Kinase (55-170) U/L CK-MB (Mass) (0.0-3.38) ng/mL Troponin I, Quant (0.00-0.120) ng/mL Total Protein 5.5 L (6.3-8.3) g/dL Albumin 3.0 L D (3.5-5.0) g/dL Globulin 2.6 (2.2-3.9) gm/dL Albumin/Globulin Ratio 1.2 (1.0-2.1) Procalcitonin 7.09 H (0.19-0.49) NG/ML Plasma Cortisol PM (1.7-14.1) ug/dL Arterial Blood Potassium (3.6-5.2) mmol/L Urine Opiates Screen (NEGATIVE) Urine Methadone Screen (NEGATIVE) Ur Barbiturates Screen (NEGATIVE) Ur Phencyclidine Scrn (NEGATIVE) Ur Amphetamines Screen (NEGATIVE) U Benzodiazepines Scrn (NEGATIVE) U Oth Cocaine Metabols (NEGATIVE) U Cannabinoids Screen (NEGATIVE) 01/31/17 01/31/17 Range/Units 12:04 11:18 WBC 22.5 H D (4.8-10.8) K/uL RBC 4.08 L (4.40-5.90) Mil/uL Hgb 12.4 (12.0-18.0) g/dL Hct 38.6 (35.0-51.0) % MCV 94.5 H (80.0-94.0) fL MCH 30.3 (27.0-31.0) pg MCHC 32.1 L (33.0-37.0) g/dL RDW 14.2 (11.5-14.5) % Plt Count 298 (130-400) K/uL MPV 8.0 (7.2-11.7) fL Neutrophils % (Manual) (50-75) % Band Neutrophils % (0-2) % Lymphocytes % (Manual) (20-40) % Monocytes % (Manual) (0-10) % Differential Comment Hypersegmented Polys Smudge Cells Toxic Granulation Platelet Estimate (NORMAL) Large Platelets Polychromasia Poikilocytosis (manual Anisocytosis (manual) Microcytosis (manual) D-Dimer, Quantitative (0-243) ng/mlDDU Puncture Site Lra pCO2 28 L (35-45) mm/Hg pO2 314 H (80-100) mm/Hg HCO3 13.8 L (21-28) mmol/L ABG pH 7.23 L (7.35-7.45) ABG Total CO2 12.6 L (22-28) mmol/L ABG O2 Saturation 99.6 H (95-98) % ABG Base Excess -14.3 L (-2.0-3.0) mmol/L ABG Hemoglobin (11.7-17.4) g/dL ABG Carboxyhemoglobin (0.5-1.5) % POC ABG HHb (Measured) (0.0-5.0) % ABG Methemoglobin (0.0-3.0) % Rodrigo Test Pos ABG Potassium 4.2 (3.6-5.2) mmol/L A-a O2 Difference 364.0 mm/Hg Respiratory Index 1.2 Hgb O2 Saturation (95.0-98.0) % Sodium 139.0 (132-148) mmol/l Chloride 113.0 H (98-107) mmol/L Glucose 107 (75-110) mg/dl Lactate 4.5 H* (0.7-2.1) mmol/L Mechanical Rate 14 FiO2 100.0 % Tidal Volume 500 PEEP 5 Crit Value Called To Dr hopper Crit Value Called By Chris vance semiconductor dies loader Crit Value Read Back Y Blood Gas Notified Time 1124 Potassium (3.6-5.2) mmol/L Carbon Dioxide (22-30) mmol/L Anion Gap (10-20) BUN (9-20) mg/dL Creatinine (0.8-1.5) MG/DL Est GFR ( Amer) Est GFR (Non-Af Amer) POC Glucose (mg/dL) (65-110) mg/dL Random Glucose (75-110) mg/dL Lactic Acid (0.7-2.1) mmol/L Calcium (8.6-10.4) mg/dl Phosphorus (2.5-4.5) mg/dL Magnesium (1.6-2.3) mg/dL Total Bilirubin (0.2-1.3) mg/dL AST (17-59) U/L ALT (21-72) U/L Alkaline Phosphatase (38-126) U/L Total Creatine Kinase (55-170) U/L CK-MB (Mass) (0.0-3.38) ng/mL Troponin I, Quant (0.00-0.120) ng/mL Total Protein (6.3-8.3) g/dL Albumin (3.5-5.0) g/dL Globulin (2.2-3.9) gm/dL Albumin/Globulin Ratio (1.0-2.1) Procalcitonin (0.19-0.49) NG/ML Plasma Cortisol PM (1.7-14.1) ug/dL Arterial Blood Potassium 4.2 (3.6-5.2) mmol/L Urine Opiates Screen (NEGATIVE) Urine Methadone Screen (NEGATIVE) Ur Barbiturates Screen (NEGATIVE) Ur Phencyclidine Scrn (NEGATIVE) Ur Amphetamines Screen (NEGATIVE) U Benzodiazepines Scrn (NEGATIVE) U Oth Cocaine Metabols (NEGATIVE) U Cannabinoids Screen (NEGATIVE) Laboratory Results - last 24 hr 01/31/17 01/31/17 01/31/17 11:18 12:04 12:04 WBC 22.5 H D RBC 4.08 L Hgb 12.4 Hct 38.6 MCV 94.5 H MCH 30.3 MCHC 32.1 L RDW 14.2 Plt Count 298 MPV 8.0 Neutrophils % (Manual) Band Neutrophils % Lymphocytes % (Manual) Monocytes % (Manual) Differential Comment Hypersegmented Polys Smudge Cells Toxic Granulation Platelet Estimate Large Platelets Polychromasia Poikilocytosis (manual Anisocytosis (manual) Microcytosis (manual) D-Dimer, Quantitative Puncture Site Lra pCO2 28 L pO2 314 H HCO3 13.8 L ABG pH 7.23 L ABG Total CO2 12.6 L ABG O2 Saturation 99.6 H ABG Base Excess -14.3 L ABG Hemoglobin ABG Carboxyhemoglobin POC ABG HHb (Measured) ABG Methemoglobin Rodrigo Test Pos ABG Potassium 4.2 A-a O2 Difference 364.0 Respiratory Index 1.2 Hgb O2 Saturation Sodium 139.0 Chloride 113.0 H Glucose 107 Lactate 4.5 H* Mechanical Rate 14 FiO2 100.0 Tidal Volume 500 PEEP 5 Crit Value Called To Dr hopper Crit Value Called By Chris vance semiconductor dies loader Crit Value Read Back Y Blood Gas Notified Time 1124 Potassium Carbon Dioxide Anion Gap BUN Creatinine Est GFR ( Amer) Est GFR (Non-Af Amer) POC Glucose (mg/dL) Random Glucose Lactic Acid Calcium Phosphorus Magnesium Total Bilirubin AST ALT Alkaline Phosphatase Total Creatine Kinase CK-MB (Mass) Troponin I, Quant Total Protein Albumin Globulin Albumin/Globulin Ratio Procalcitonin 7.09 H Plasma Cortisol PM Arterial Blood Potassium 4.2 Urine Opiates Screen Urine Methadone Screen Ur Barbiturates Screen Ur Phencyclidine Scrn Ur Amphetamines Screen U Benzodiazepines Scrn U Oth Cocaine Metabols U Cannabinoids Screen 01/31/17 01/31/17 01/31/17 12:04 16:46 17:15 WBC RBC Hgb Hct MCV MCH MCHC RDW Plt Count MPV Neutrophils % (Manual) Band Neutrophils % Lymphocytes % (Manual) Monocytes % (Manual) Differential Comment Hypersegmented Polys Smudge Cells Toxic Granulation Platelet Estimate Large Platelets Polychromasia Poikilocytosis (manual Anisocytosis (manual) Microcytosis (manual) D-Dimer, Quantitative Puncture Site A line pCO2 27 L pO2 172 H HCO3 13.5 L ABG pH 7.23 L ABG Total CO2 12.1 L ABG O2 Saturation 99.7 H ABG Base Excess -14.7 L ABG Hemoglobin ABG Carboxyhemoglobin POC ABG HHb (Measured) ABG Methemoglobin Rodrigo Test Na ABG Potassium 4.2 A-a O2 Difference 222.0 Respiratory Index 1.3 Hgb O2 Saturation Sodium 142 138.0 Chloride 112 H 108.0 H Glucose 182 H Lactate 3.8 H Mechanical Rate FiO2 60.0 Tidal Volume 500 PEEP 5 Crit Value Called To Crit Value Called By Crit Value Read Back Blood Gas Notified Time Potassium 4.7 Carbon Dioxide 15 L Anion Gap 20 BUN 55 H Creatinine 5.1 H Est GFR ( Amer) 14 Est GFR (Non-Af Amer) 12 POC Glucose (mg/dL) Random Glucose 112 H Lactic Acid 3.4 H Calcium 7.0 L Phosphorus 2.9 Magnesium 2.0 Total Bilirubin 0.8 AST 39 ALT 26 Alkaline Phosphatase 35 L Total Creatine Kinase CK-MB (Mass) Troponin I, Quant Total Protein 5.5 L Albumin 3.0 L D Globulin 2.6 Albumin/Globulin Ratio 1.2 Procalcitonin Plasma Cortisol PM Arterial Blood Potassium 4.2 Urine Opiates Screen Urine Methadone Screen Ur Barbiturates Screen Ur Phencyclidine Scrn Ur Amphetamines Screen U Benzodiazepines Scrn U Oth Cocaine Metabols U Cannabinoids Screen 01/31/17 01/31/17 01/31/17 17:20 17:20 17:20 WBC 35.9 H D RBC 5.49 Hgb 16.8 D Hct 51.5 H MCV 93.7 MCH 30.6 MCHC 32.7 L RDW 14.2 Plt Count 360 MPV 8.1 Neutrophils % (Manual) 82 H Band Neutrophils % 9 H Lymphocytes % (Manual) 3 L Monocytes % (Manual) 6 Differential Comment Hypersegmented Polys Present Smudge Cells Present Toxic Granulation Present Platelet Estimate Normal Large Platelets Present Polychromasia Slight Poikilocytosis (manual Slight Anisocytosis (manual) Slight Microcytosis (manual) Slight D-Dimer, Quantitative 4165 H Puncture Site pCO2 pO2 HCO3 ABG pH ABG Total CO2 ABG O2 Saturation ABG Base Excess ABG Hemoglobin ABG Carboxyhemoglobin POC ABG HHb (Measured) ABG Methemoglobin Rodrigo Test ABG Potassium A-a O2 Difference Respiratory Index Hgb O2 Saturation Sodium 137 Chloride 113 H Glucose Lactate Mechanical Rate FiO2 Tidal Volume PEEP Crit Value Called To Crit Value Called By Crit Value Read Back Blood Gas Notified Time Potassium 4.3 Carbon Dioxide 13 L Anion Gap 15 BUN 55 H Creatinine 5.7 H Est GFR ( Amer) 12 Est GFR (Non-Af Amer) 10 POC Glucose (mg/dL) Random Glucose 181 H Lactic Acid Calcium 6.6 L Phosphorus 2.5 Magnesium 1.7 Total Bilirubin 0.9 AST 72 H D ALT 29 Alkaline Phosphatase 34 L Total Creatine Kinase 584 H CK-MB (Mass) 80.8 H Troponin I, Quant 40.0000 H* Total Protein 5.2 L Albumin 2.4 L Globulin 2.8 Albumin/Globulin Ratio 0.8 L Procalcitonin Plasma Cortisol PM 118 H Arterial Blood Potassium Urine Opiates Screen Urine Methadone Screen Ur Barbiturates Screen Ur Phencyclidine Scrn Ur Amphetamines Screen U Benzodiazepines Scrn U Oth Cocaine Metabols U Cannabinoids Screen 01/31/17 01/31/17 01/31/17 17:23 21:22 22:40 WBC RBC Hgb Hct MCV MCH MCHC RDW Plt Count MPV Neutrophils % (Manual) Band Neutrophils % Lymphocytes % (Manual) Monocytes % (Manual) Differential Comment Hypersegmented Polys Smudge Cells Toxic Granulation Platelet Estimate Large Platelets Polychromasia Poikilocytosis (manual Anisocytosis (manual) Microcytosis (manual) D-Dimer, Quantitative Puncture Site pCO2 pO2 HCO3 ABG pH ABG Total CO2 ABG O2 Saturation ABG Base Excess ABG Hemoglobin ABG Carboxyhemoglobin POC ABG HHb (Measured) ABG Methemoglobin Rodrigo Test ABG Potassium A-a O2 Difference Respiratory Index Hgb O2 Saturation Sodium Chloride Glucose Lactate Mechanical Rate FiO2 Tidal Volume PEEP Crit Value Called To Crit Value Called By Crit Value Read Back Blood Gas Notified Time Potassium Carbon Dioxide Anion Gap BUN Creatinine Est GFR ( Amer) Est GFR (Non-Af Amer) POC Glucose (mg/dL) 153 H Random Glucose Lactic Acid Calcium Phosphorus Magnesium Total Bilirubin AST ALT Alkaline Phosphatase Total Creatine Kinase 629 H CK-MB (Mass) 85.9 H Troponin I, Quant 64.0000 H* Total Protein Albumin Globulin Albumin/Globulin Ratio Procalcitonin Plasma Cortisol PM Arterial Blood Potassium Urine Opiates Screen Negative Urine Methadone Screen Negative Ur Barbiturates Screen Negative Ur Phencyclidine Scrn Negative Ur Amphetamines Screen Negative U Benzodiazepines Scrn Negative U Oth Cocaine Metabols Negative U Cannabinoids Screen Negative 01/31/17 02/01/17 02/01/17 22:45 00:33 01:40 WBC RBC Hgb Hct MCV MCH MCHC RDW Plt Count MPV Neutrophils % (Manual) Band Neutrophils % Lymphocytes % (Manual) Monocytes % (Manual) Differential Comment Hypersegmented Polys Smudge Cells Toxic Granulation Platelet Estimate Large Platelets Polychromasia Poikilocytosis (manual Anisocytosis (manual) Microcytosis (manual) D-Dimer, Quantitative Puncture Site A line Genny Genny pCO2 42 34 L 143 H* pO2 276 H 137 H 78 L HCO3 7.0 L* 2.8 L* 63.4 H* ABG pH 6.95 L* 6.84 L* 7.40 ABG Total CO2 10.5 L 6.8 L 93.0 H ABG O2 Saturation 100.0 H 98.6 H 95.8 ABG Base Excess -23.0 L -28.3 L 49.5 H ABG Hemoglobin 19.0 H 19.7 H 16.0 ABG Carboxyhemoglobin 1.0 1.4 1.4 POC ABG HHb (Measured) 0.0 1.4 4.1 ABG Methemoglobin 0.8 0.5 0.7 Rodrigo Test Na Na Na ABG Potassium A-a O2 Difference 385.0 534.0 456.0 Respiratory Index 1.4 3.9 5.8 Hgb O2 Saturation 98.2 H 96.8 93.8 L Sodium Chloride Glucose Lactate Mechanical Rate 12 12 FiO2 100.0 100.0 100.0 Tidal Volume 500 500 PEEP 5 5 Crit Value Called To Dr cherelle ramos rn Crit Value Called By Bobby Carroll semiconductor dies loader Carly semiconductor dies loader Crit Value Read Back Y Y Y Blood Gas Notified Time 2250 36 143 Potassium Carbon Dioxide Anion Gap BUN Creatinine Est GFR ( Amer) Est GFR (Non-Af Amer) POC Glucose (mg/dL) Random Glucose Lactic Acid Calcium Phosphorus Magnesium Total Bilirubin AST ALT Alkaline Phosphatase Total Creatine Kinase CK-MB (Mass) Troponin I, Quant Total Protein Albumin Globulin Albumin/Globulin Ratio Procalcitonin Plasma Cortisol PM Arterial Blood Potassium Urine Opiates Screen Urine Methadone Screen Ur Barbiturates Screen Ur Phencyclidine Scrn Ur Amphetamines Screen U Benzodiazepines Scrn U Oth Cocaine Metabols U Cannabinoids Screen 02/01/17 02/01/17 01:58 03:04 WBC RBC Hgb Hct MCV MCH MCHC RDW Plt Count MPV Neutrophils % (Manual) Band Neutrophils % Lymphocytes % (Manual) Monocytes % (Manual) Differential Comment Hypersegmented Polys Smudge Cells Toxic Granulation Platelet Estimate Large Platelets Polychromasia Poikilocytosis (manual Anisocytosis (manual) Microcytosis (manual) D-Dimer, Quantitative Puncture Site Genny Genny pCO2 54 H 53 H pO2 147 H 153 H HCO3 3.9 L* 6.4 L* ABG pH 6.81 L* 6.89 L* ABG Total CO2 10.3 L 11.7 L ABG O2 Saturation 98.4 H 99.2 H ABG Base Excess -26.9 L -23.7 L ABG Hemoglobin 18.3 H 17.5 H ABG Carboxyhemoglobin 0.8 1.2 POC ABG HHb (Measured) 1.6 0.8 ABG Methemoglobin 0.6 0.5 Rodrigo Test Na Na ABG Potassium A-a O2 Difference 499.0 494.0 Respiratory Index 3.4 3.2 Hgb O2 Saturation 97.0 97.5 Sodium Chloride Glucose Lactate Mechanical Rate 12 20 FiO2 100.0 100.0 Tidal Volume 500 500 PEEP 5 5 Crit Value Called To Angelia Galan rn Crit Value Called By Carly semiconductor dies loader Carly semiconductor dies loader Crit Value Read Back Y Y Blood Gas Notified Time 202 308 Potassium Carbon Dioxide Anion Gap BUN Creatinine Est GFR ( Amer) Est GFR (Non-Af Amer) POC Glucose (mg/dL) Random Glucose Lactic Acid Calcium Phosphorus Magnesium Total Bilirubin AST ALT Alkaline Phosphatase Total Creatine Kinase CK-MB (Mass) Troponin I, Quant Total Protein Albumin Globulin Albumin/Globulin Ratio Procalcitonin Plasma Cortisol PM Arterial Blood Potassium Urine Opiates Screen Urine Methadone Screen Ur Barbiturates Screen Ur Phencyclidine Scrn Ur Amphetamines Screen U Benzodiazepines Scrn U Oth Cocaine Metabols U Cannabinoids Screen EKG/Cardiology Studies: Cardiology / EKG Studies 01/31/17 15:00 EKG [ELECTROCARDIOGRAM] Routine Comment: Mode Of Transportation: PORTABLE Reason For Exam: heart block - venous pacing 01/31/17 21:00 EKG [ELECTROCARDIOGRAM] Routine Comment: Mode Of Transportation: PORTABLE Reason For Exam: third degree heart block - venous pacing Critical Care Progress Note - Nutrition Nutrition: Nutrition Category Date Time Status NPO Diet [DIET] Diets 01/31/17 Lunch Active
--- NOTE | 2017-02-01 17:13 | CARD ---
APPROVED REPORT EKG Measurement Heart [id number] [id number] <Conclusion> Ventricular-paced rhythm Underlying rhythm is sinus Abnormal ECG
== END 2017-02-01 06:15 | DRG 871 ==
LOC: C.ER 08:29 → C.9I 09:29
PROVIDERS: ADMIT Internal Medicine; ATTEND Internal Medicine
PROC: 5A1935Z Respiratory Ventilation, Less than 24 Consecutive Hours (ICD-10-PCS; principal; 2017-01-31)
PROC: 0BH17EZ Insertion of Endotracheal Airway into Trachea, Via Natural or Artificial Opening (ICD-10-PCS; 2017-01-31)
PROC: 5A1223Z Performance of Cardiac Pacing, Continuous (ICD-10-PCS; 2017-01-31)
PROC: 05HM33Z Insertion of Infusion Device into Right Internal Jugular Vein, Percutaneous Approach (ICD-10-PCS; 2017-01-31)
PROC: 3E043XZ Introduction of Vasopressor into Central Vein, Percutaneous Approach (ICD-10-PCS; 2017-01-31)
DX: A41.9 Sepsis, unspecified organism (principal); J96.00 Acute respiratory failure, unspecified whether with hypoxia or hypercapnia; I21.4 Non-ST elevation (NSTEMI) myocardial infarction; R65.21 Severe sepsis with septic shock; J18.9 Pneumonia, unspecified organism; J96.90 Respiratory failure, unspecified, unspecified whether with hypoxia or hypercapnia; I44.2 Atrioventricular block, complete; Z94.81 Bone marrow transplant status; I95.9 Hypotension, unspecified; E87.2 Acidosis; C92.10 Chronic myeloid leukemia, BCR/ABL-positive, not having achieved remission; N17.9 Acute kidney failure, unspecified; E11.9 Type 2 diabetes mellitus without complications; R55 Syncope and collapse; I10 Essential (primary) hypertension; Z21 Asymptomatic human immunodeficiency virus [HIV] infection status; Z96.643 Presence of artificial hip joint, bilateral; M10.9 Gout, unspecified; I51.4 Myocarditis, unspecified; E86.0 Dehydration